=== PATIENT | male | born 1970 | race Caucasian/White ===

== ENCOUNTER 2017-12-10 14:28 | Emergency (ER) | payer OTHER, SELFPAY ==
--- NOTE | 2017-12-10 16:08 | ER ---
Nurse's Notes [facility] Name: Valentin Jordan Age: 46 yrs Sex: Male : 1970 Arrival Date: 12/10/2017 Time: 14:33 Bed 10 Private MD: Diagnosis: Lumbago with sciatica, left side Presentation: 12/10 14:55 Presenting complaint: Patient states: "Im hurting pretty bad from my back down to my lk1 left leg". Transition of care: patient was not received from another setting of care. Onset of symptoms was December 06, 2017. Risk Assessment: Do you want to hurt yourself or someone else? Patient reports no desire to harm self or others. Initial Sepsis Screen: Does the patient meet any 2 criteria? No. Patient's initial sepsis screen is negative. Does the patient have a suspected source of infection? No. Patient's initial sepsis screen is negative. Care prior to arrival: None. 14:55 Method Of Arrival: Ambulatory lk1 14:55 Acuity: RAÚL 4 lk1 Historical: - Allergies: 14:56 No Known Allergies; lk1 - PMHx: 14:56 None; lk1 - PSHx: 14:56 Skin Graft; Carpal Tunnel Repair; lk1 - Immunization history:: Adult Immunizations up to date. - Social history:: Smoking status: Patient uses tobacco products, smokes one-half pack cigarettes per day. Screenin:20 Abuse screen: Denies threats or abuse. Denies injuries from another. Nutritional aj1 screening: No deficits noted. Tuberculosis screening: No symptoms or risk factors identified. Fall Risk None identified. Assessment: 16:20 General: Appears in no apparent distress. uncomfortable, Behavior is calm, cooperative, aj1 appropriate for age. Pain: Complains of pain in left leg and left low back Pain does not radiate. Pain currently is 9 out of 10 on a pain scale. Quality of pain is described as sharp, Pain began 2-3 days ago. Is continuous, Alleviated by nothing. Aggravated by repositioning. Neuro: Level of Consciousness is awake, alert, obeys commands, Oriented to person, place, time, situation, Moves all extremities. Full function Gait is steady, Speech is normal, Facial symmetry appears normal, Intact. Cardiovascular: Patient's skin is warm and dry. Respiratory: Airway is patent Respiratory effort is even, unlabored, Respiratory pattern is regular, symmetrical. GI: No signs and/or symptoms were reported involving the gastrointestinal system. : No signs and/or symptoms were reported regarding the genitourinary system. EENT: No signs and/or symptoms were reported regarding the EENT system. Derm: No signs and/or symptoms reported regarding the dermatologic system. Skin is pink, warm \\T\\ dry. normal. Musculoskeletal: Circulation, motion, and sensation intact. 17:20 Reassessment: Patient appears in no apparent distress at this time. No changes from aj1 previously documented assessment. Patient and/or family updated on plan of care and expected duration. Pain level reassessed. Patient is alert, oriented x 3, equal unlabored respirations, skin warm/dry/pink. Vital Signs: 14:56 BP 143 / 83; Pulse 92; Resp 18; Temp 97.2(TE); Pulse Ox 98% on R/A; Weight 113.4 kg lk1 (R); Height 5 ft. 11 in. (180.34 cm) (R); Pain 9/10; 17:20 BP 152 / 75; Pulse 95; Resp 18; Pulse Ox 99% ; aj1 14:56 Body Mass Index 34.87 (113.40 kg, 180.34 cm) lk1 ED Course: 14:33 Patient arrived in ED. rg4 14:55 Triage completed. lk1 14:58 Arm band placed on right wrist. lk1 15:27 Taye Liu NP is PHCP. pm1 15:27 Pradeep Butt MD is Attending Physician. pm1 15:54 Traci Ren RN is Primary Nurse. aj1 16:20 Patient has correct armband on for positive identification. Call light in reach. aj1 16:20 No provider procedures requiring assistance completed. Patient did not have IV access aj1 during this emergency room visit. Administered Medications: 17:18 Not Given (Patient does not have anyone who can drive him home): [place] 10 mg-325 mg 1 aj1 tabs PO once 17:18 Not Given (patient does not have anyone who can drive him home): Flexeril 10 mg PO once aj1 17:19 Drug: Ibuprofen 800 mg Route: PO; aj1 17:20 Follow up: Response: No adverse reaction aj1 Outcome: 16:07 Discharge ordered by . pm1 17:20 Discharged to home ambulatory. aj1 17:20 Condition: good 17:20 Discharge instructions given to patient, Instructed on discharge instructions, follow up and referral plans. no drinking with medication, no driving heavy equipment, medication usage, Demonstrated understanding of instructions, follow-up care, medications, Prescriptions given X 3. 18:01 Patient left the ED. aj1 Signatures: Traci Ren RN RN aj1 Linda Man RN RN lk1 Taye Liu NP FORESTRY PROFESSOR pm1 Mercedes Bennett rg4
--- NOTE | 2017-12-10 16:08 | EDPHYS ---
Physician Documentation [facility] Name: Valentin Jordan Age: 46 yrs Sex: Male : 1970 Arrival Date: 12/10/2017 Time: 14:33 Bed 10 Private MD: ED Physician Pradeep Butt HPI: 12/10 16:03 This 46 yrs old Male presents to ER via Ambulatory with complaints of Back pm1 Pain. 16:03 The patient presents with pain that is chronic, with no known mechanism of injury. The pm1 symptoms are located in the left low back. Onset: The symptoms/episode began/occurred 3 day(s) ago. The pain radiates to the left leg. Associated signs and symptoms: Pertinent negatives: abdominal pain, dysuria, fever, incontinence, numbness, tingling, urinary retention. Modifying factors: The patient symptoms are alleviated by nothing, the patient symptoms are aggravated by any movement. The patient has experienced similar episodes in the past, chronically. The patient has not recently seen a physician, and does not have an established primary care provider, just moved to area. Patient with onset of chronic back pain 2 years ago. Historical: - Allergies: 14:56 No Known Allergies; lk1 - PMHx: 14:56 None; lk1 - PSHx: 14:56 Skin Graft; Carpal Tunnel Repair; lk1 - Immunization history:: Adult Immunizations up to date. - Social history:: Smoking status: Patient uses tobacco products, smokes one-half pack cigarettes per day. ROS: 16:05 Constitutional: Negative for fever, chills, and weight loss, Eyes: Negative for injury, pm1 pain, redness, and discharge, ENT: Negative for injury, pain, and discharge, Neck: Negative for injury, pain, and swelling, Cardiovascular: Negative for chest pain, palpitations, and edema, Respiratory: Negative for shortness of breath, cough, wheezing, and pleuritic chest pain, Abdomen/GI: Negative for abdominal pain, nausea, vomiting, diarrhea, and constipation. 16:05 : Negative for injury, bleeding, discharge, and swelling, MS/Extremity: Negative for injury and deformity, Skin: Negative for injury, rash, and discoloration, Neuro: Negative for headache, weakness, numbness, tingling, and seizure. 16:05 Back: Positive for of the left low back, Radiation down left leg. Exam: 17:48 Constitutional: This is a well developed, well nourished patient who is awake, alert, pm1 and in no acute distress. Head/Face: Normocephalic, atraumatic. Eyes: Pupils equal round and reactive to light, extra-ocular motions intact. Lids and lashes normal. Conjunctiva and sclera are non-icteric and not injected. Cornea within normal limits. Periorbital areas with no swelling, redness, or edema. Neck: Trachea midline, no thyromegaly or masses palpated, and no cervical lymphadenopathy. Supple, full range of motion without nuchal rigidity, or vertebral point tenderness. No Meningismus. Chest/axilla: Normal chest wall appearance and motion. Nontender with no deformity. No lesions are appreciated. Cardiovascular: Regular rate and rhythm with a normal S1 and S2. No gallops, murmurs, or rubs. Normal PMI, no JVD. No pulse deficits. Respiratory: Lungs have equal breath sounds bilaterally, clear to auscultation and percussion. No rales, rhonchi or wheezes noted. No increased work of breathing, no retractions or nasal flaring. Abdomen/GI: Soft, non-tender, with normal bowel sounds. No distension or tympany. No guarding or rebound. No evidence of tenderness throughout. Back: No spinal tenderness. No costovertebral tenderness. Full range of motion. Skin: Warm, dry with normal turgor. Normal color with no rashes, no lesions, and no evidence of cellulitis. MS/ Extremity: Pulses equal, no cyanosis. Neurovascular intact. Full, normal range of motion. 17:48 Neuro: Orientation: is normal, Mentation: is normal, Motor: moves all fours, strength is normal, Deep tendon reflexes are 2+ (normal) in the right patellar, right Achilles, left patellar and left Achilles. Vital Signs: 14:56 BP 143 / 83; Pulse 92; Resp 18; Temp 97.2(TE); Pulse Ox 98% on R/A; Weight 113.4 kg lk1 (R); Height 5 ft. 11 in. (180.34 cm) (R); Pain 9/10; 17:20 BP 152 / 75; Pulse 95; Resp 18; Pulse Ox 99% ; aj1 14:56 Body Mass Index 34.87 (113.40 kg, 180.34 cm) lk1 MDM: 15:29 Patient medically screened. pm1 16:06 Data reviewed: vital signs. Data interpreted: Pulse oximetry: on room air is 98 %. pm1 Interpretation: normal. Counseling: I had a detailed discussion with the patient and/or guardian regarding: the historical points, exam findings, and any diagnostic results supporting the discharge/admit diagnosis, the need for outpatient follow up, for definitive care, a neurosurgeon, to return to the emergency department if symptoms worsen or persist or if there are any questions or concerns that arise at home. Administered Medications: 17:18 Not Given (Patient does not have anyone who can drive him home): [place] 10 mg-325 mg 1 aj1 tabs PO once 17:18 Not Given (patient does not have anyone who can drive him home): Flexeril 10 mg PO once aj1 17:19 Drug: Ibuprofen 800 mg Route: PO; aj1 17:20 Follow up: Response: No adverse reaction aj1 Disposition: 18:38 Co-signature as Attending Physician, Pradeep Butt MD. rn Disposition: 12/10/17 16:07 Discharged to Home. Impression: Lumbago with sciatica, left side. - Condition is Stable. - Discharge Instructions: Back Pain, Adult, Sciatica. - Prescriptions for Naprosyn 500 mg Oral Tablet - take 1 tablet by ORAL route 2 times per day take with food; 30 tablet. Tylenol- Codeine #3 300-30 mg Oral Tablet - take 2 tablets by ORAL route every 6 hours As needed; 20 tablet. Cyclobenzaprine 10 mg Oral Tablet - take 1 tablet by ORAL route every 8 hours As needed; 30 tablet. - Medication Reconciliation Form, Thank You Letter, Prescription Opioid Use form. - Follow up: Emergency Department; When: As needed; Reason: Worsening of condition. Follow up: Private Physician; When: 2 - 3 days; Reason: Recheck today's complaints, Continuance of care, Re-evaluation by your physician. - Problem is new. - Symptoms have improved. Signatures: Traci Ren RN RN aj1 Pradeep Butt MD MD rn Kluge, Leah, RN RN lk1 Taye Liu, [employer] pm1 Corrections: (The following items were deleted from the chart) 18:01 16:07 12/10/2017 16:07 Discharged to Home. Impression: Lumbago with sciatica, left aj1 side. Condition is Stable. Forms are Medication Reconciliation Form, Thank You Letter, Antibiotic Education, Prescription Opioid Use. Follow up: Emergency Department; When: As needed; Reason: Worsening of condition. Follow up: Private Physician; When: 2 - 3 days; Reason: Recheck today's complaints, Continuance of care, Re-evaluation by your physician. Problem is new. Symptoms have improved. pm1
[2017-12-10] MEDS ORDERED: IBUPROFEN 400 MG TAB ONE (17:07)
== END 2017-12-10 18:01 | disposition home or self-care (01) ==
LOC: ER 14:28
DX: M54.42 Lumbago with sciatica, left side (principal); F17.210 Nicotine dependence, cigarettes, uncomplicated
CPT/HCPCS: 99283

== ENCOUNTER 2018-03-07 10:01 | Emergency (ER) | payer OTHER ==
[2018-03-07] MEDS ORDERED: NA CHLORIDE 0.9% 1,000 ML ONE (10:43)
[2018-03-07 10:44] LABS: Absolute Lymphocytes (CBC) 1.3 K/uL (0.7-4.9); Absolute Monocytes 0.5 K/uL (0.1-1.3); Absolute Neutrophil 3.1 K/uL (1.8-8.0); Basophils % 0.9 % (0-1.3); Hematocrit 42.2 % (39.6-49.0); Lymphocytes % 25.1 % (15.3-44.8); MCH 31.7 pg (27.0-35.0); MPV 9.3 fL (7.6-11.3); Monocytes % 9.8 % (3.3-12.3); RBC Red Blood Cell Count 4.63 M/uL (4.33-5.43)
[2018-03-07 10:46] LABS: Potassium 3.9 mmol/L (3.5-5.1)
--- NOTE | 2018-03-07 11:44 | EDPHYS ---
Physician Documentation [facility] Name: Valentin Jordan Age: 47 yrs Sex: Male : 1970 Arrival Date: 03/07/2018 Time: 10:04 Bed 19 Private MD: ED Physician Meet Bass HPI: 03/07 11:41 This 47 yrs old Male presents to ER via EMS with complaints of Dehydration. jr8 11:41 Patient has been outside [employer] for his job for the past few days. Today while outside jr8 started to feel dizzy and nauseated. Currently feeling better after EMS gave fluids and got him out of the heat. Denies any symptoms at this time . Severity of symptoms: At their worst the symptoms were moderate in the emergency department the symptoms have improved. The patient has not experienced similar symptoms in the past. The patient has not recently seen a physician. Historical: - Allergies: 09:55 No Known Allergies; rb1 - Home Meds: 09:55 muscle relaxer - unknown [Active]; rb1 - PMHx: 09:55 hypoglycemia; rb1 - PSHx: 09:55 Skin Graft; Carpal Tunnel Repair; rb1 - Immunization history:: Adult Immunizations up to date. - Social history:: Smoking status: Patient uses tobacco products, smokes one-half pack cigarettes per day. - Ebola Screening: : Patient negative for fever greater than or equal to 101.5 degrees Fahrenheit, and additional compatible Ebola Virus Disease symptoms. ROS: 11:41 Eyes: Negative for injury, pain, redness, and discharge, ENT: Negative for injury, jr8 pain, and discharge, Neck: Negative for injury, pain, and swelling, Cardiovascular: Negative for chest pain, palpitations, and edema, Respiratory: Negative for shortness of breath, cough, wheezing, and pleuritic chest pain, Abdomen/GI: Negative for abdominal pain, vomiting, diarrhea, and constipation. Positive for nausea Back: Negative for injury and pain, MS/Extremity: Negative for injury and deformity, Skin: Negative for injury, rash, and discoloration. 11:41 Neuro: Positive for dizziness, Negative for altered mental status, gait disturbance, headache, hearing loss, loss of consciousness, numbness, seizure activity, speech changes, syncope, near syncope, tingling, tinnitus, tremor, visual changes, weakness. Exam: 11:41 Eyes: Pupils equal round and reactive to light, extra-ocular motions intact. Lids and jr8 lashes normal. Conjunctiva and sclera are non-icteric and not injected. Cornea within normal limits. Periorbital areas with no swelling, redness, or edema. ENT: Nares patent. No nasal discharge, no septal abnormalities noted. Tympanic membranes are normal and external auditory canals are clear. Oropharynx with no redness, swelling, or masses, exudates, or evidence of obstruction, uvula midline. Mucous membranes moist. Neck: Trachea midline, no thyromegaly or masses palpated, and no cervical lymphadenopathy. Supple, full range of motion without nuchal rigidity, or vertebral point tenderness. No Meningismus. Respiratory: Lungs have equal breath sounds bilaterally, clear to auscultation and percussion. No rales, rhonchi or wheezes noted. No increased work of breathing, no retractions or nasal flaring. Abdomen/GI: Soft, non-tender, with normal bowel sounds. No distension or tympany. No guarding or rebound. No evidence of tenderness throughout. Back: No spinal tenderness. No costovertebral tenderness. Full range of motion. Skin: Warm, dry with normal turgor. Normal color with no rashes, no lesions, and no evidence of cellulitis. MS/ Extremity: Pulses equal, no cyanosis. Neurovascular intact. Full, normal range of motion. Neuro: Awake and alert, GCS 15, oriented to person, place, time, and situation. Cranial nerves II-XII grossly intact. Motor strength 5/5 in all extremities. Sensory grossly intact. Cerebellar exam normal. Normal gait. 11:41 Cardiovascular: Rate: tachycardic, Rhythm: regular, Pulses: Pulses are 2+ in . Heart sounds: normal, Edema: is not appreciated. Vital Signs: 09:55 BP 126 / 85; Pulse 111; Resp 29; Temp 98.3(O); Pulse Ox 96% on R/A; Weight 122.92 kg; rb1 Height 5 ft. 11 in. (180.34 cm) (R); Pain 5/10; 10:15 BP 118 / 94; Pulse 111; Resp 15; Pulse Ox 97% ; rb1 11:11 BP 121 / 88; Pulse 107; Resp 17; Pulse Ox 100% on R/A; rb1 12:00 BP 123 / 87; Pulse 99; Resp 17; Pulse Ox 100% on R/A; rb1 09:55 Body Mass Index 37.80 (122.92 kg, 180.34 cm) rb1 MDM: 10:05 Patient medically screened. jr8 11:41 Data reviewed: vital signs, nurses notes, lab test result(s), and as a result, I will jr8 discharge patient. Data interpreted: Pulse oximetry: on room air is 97 %. Interpretation: normal. Counseling: I had a detailed discussion with the patient and/or guardian regarding: the historical points, exam findings, and any diagnostic results supporting the discharge/admit diagnosis, lab results, the need for outpatient follow up, a family practitioner, to return to the emergency department if symptoms worsen or persist or if there are any questions or concerns that arise at home. Response to treatment: the patient's symptoms have markedly improved after treatment, patient is well hydrated. 03/07 10:05 Order name: CBC with Diff; Complete Time: 10:46 [facility] 03/07 10:05 Order name: Basic Metabolic Panel; Complete Time: 10:46 [facility] 03/07 10:05 Order name: CPK; Complete Time: 10:46 [facility] 03/07 10:05 Order name: IV; Complete Time: 10:15 [facility] 03/07 10:58 Order name: Urine Dipstick--Ancillary (enter results) bd 03/07 10:06 Order name: Urine Dipstick-Ancillary (obtain specimen); Complete Time: 11:11 jr8 Administered Medications: 11:12 Drug: NS 0.9% 1000 ml Route: IV; Rate: 1000 ml; Site: left hand; rb1 12:00 Follow up: Response: No adverse reaction; IV Status: Completed infusion rb1 Point of Care Testing: Blood Glucose: 10:12 Blood Glucose: 94 mg/dL; rb1 Ranges: Critical Glucose Levels:Adult <50 mg/dl or >400 mg/dl <40 mg/dl or >180 mg/dl Disposition: 18:37 Co-signature as Attending Physician, Meet Bass MD. Disposition: 03/07/18 11:44 Discharged to Home. Impression: Heat exhaustion, unspecified, Dehydration. - Condition is Stable. - Discharge Instructions: Dehydration, Adult, Heat Exhaustion Information. - Medication Reconciliation Form, Thank You Letter, Antibiotic Education, Prescription Opioid Use, Work release form form. - Follow up: Private Physician; When: 2 - 3 days; Reason: Recheck today's complaints, Continuance of care, Re-evaluation by your physician. - Problem is new. - Symptoms have improved. Signatures: Dispatcher [employer] EDMS Pedro Gaspar PA PA jr8 Mila Carpio, RN RN rb1 Meet Bass MD MD gs Corrections: (The following items were deleted from the chart) 12:05 11:44 03/07/2018 11:44 Discharged to Home. Impression: Heat exhaustion, unspecified; rb1 Dehydration. Condition is Stable. Forms are Medication Reconciliation Form, Thank You Letter, Antibiotic Education, Prescription Opioid Use. Follow up: Private Physician; When: 2 - 3 days; Reason: Recheck today's complaints, Continuance of care, Re-evaluation by your physician. Problem is new. Symptoms have improved. jr8
--- NOTE | 2018-03-07 11:44 | ER ---
Nurse's Notes [facility] Name: Valentin Jordan Age: 47 yrs Sex: Male : 1970 Arrival Date: 03/07/2018 Time: 10:04 Bed 19 Private MD: Diagnosis: Heat exhaustion, unspecified;Dehydration Presentation: 03/07 09:55 Presenting complaint: EMS states: pt. is a 47 yr. old that was working outside when he rb1 became lightheaded, dizzy, and diaphoretic. Pt. did not eat this morning. Has a history of hypoglycemia, his was BS 145. Has a 20 g to left AC with NS 1 liter infusing, received 400 mg so far. V/S bp 119/81, p 118, O2 95% RA. Sinus tach on the monitor. NKA. Transition of care: patient was not received from another setting of care. Onset of symptoms was March 07, 2018 at 09:45. Risk Assessment: Do you want to hurt yourself or someone else? Patient reports no desire to harm self or others. Initial Sepsis Screen: Does the patient meet any 2 criteria? No. Patient's initial sepsis screen is negative. Does the patient have a suspected source of infection? No. Patient's initial sepsis screen is negative. Care prior to arrival: Medication(s) given: Normal saline infusion, 400 ml. :55 Method Of Arrival: EMS: [facility] rb1 09:55 Acuity: RAÚL 3 rb1 Triage Assessment: 09:55 General: Appears in no apparent distress. comfortable, Behavior is calm, cooperative. rb1 Pain: Complains of pain in low back Pain currently is 4 out of 10 on a pain scale. Neuro: Level of Consciousness is awake, alert, obeys commands, Oriented to person, place, time, situation, Reports dizziness, lightheaded.. Cardiovascular: Capillary refill < 3 seconds is brisk in bilateral fingers. Respiratory: Airway is patent Respiratory effort is even, unlabored, Respiratory pattern is regular, symmetrical. GI: No signs and/or symptoms were reported involving the gastrointestinal system. : No signs and/or symptoms were reported regarding the genitourinary system. Derm: Skin is diaphoretic, Skin is flushed, Skin temperature is hot. Musculoskeletal: Range of motion: intact in all extremities. Historical: - Allergies: :55 No Known Allergies; rb1 - Home Meds: :55 muscle relaxer - unknown [Active]; rb1 - PMHx: : hypoglycemia; rb1 - PSHx: :55 Skin Graft; Carpal Tunnel Repair; rb1 - Immunization history:: Adult Immunizations up to date. - Social history:: Smoking status: Patient uses tobacco products, smokes one-half pack cigarettes per day. - Ebola Screening: : Patient negative for fever greater than or equal to 101.5 degrees Fahrenheit, and additional compatible Ebola Virus Disease symptoms. Screenin: Abuse screen: Denies threats or abuse. Nutritional screening: No deficits noted. rb1 Tuberculosis screening: No symptoms or risk factors identified. Fall Risk None identified. Assessment: : General: See triage assessment. rb1 :55 Reassessment: Patient appears in no apparent distress at this time. Patient and/or rb1 family updated on plan of care and expected duration. Pain level reassessed. Patient is alert, oriented x 3, equal unlabored respirations, skin warm/dry/pink. Family and employer is at bedside. Patient states feeling better. Patient states symptoms have improved. 11:54 Reassessment: Patient appears in no apparent distress at this time. No changes from rb1 previously documented assessment. Vital Signs: :55 BP 126 / 85; Pulse 111; Resp 29; Temp 98.3(O); Pulse Ox 96% on R/A; Weight 122.92 kg; rb1 Height 5 ft. 11 in. (180.34 cm) (R); Pain 5/10; 10:15 BP 118 / 94; Pulse 111; Resp 15; Pulse Ox 97% ; rb1 11:11 BP 121 / 88; Pulse 107; Resp 17; Pulse Ox 100% on R/A; rb1 12:00 BP 123 / 87; Pulse 99; Resp 17; Pulse Ox 100% on R/A; rb1 09:55 Body Mass Index 37.80 (122.92 kg, 180.34 cm) rb1 ED Course: : Maintain EMS IV. Dressing intact. Good blood return noted. Site clean \T\ dry. Gauge \T\ rb 1 site: 20 g Left AC. 09:55 Arm band placed on right wrist. rb1 :55 Patient has correct armband on for positive identification. Bed in low position. Call rb1 light in reach. Side rails up X2. Pulse ox on. NIBP on. 10:04 Patient arrived in ED. rb1 10:05 Pedro Gaspar PA is PHCP. jr8 10:05 Meet Bass MD is Attending Physician. jr8 10:10 Initial lab(s) drawn, by me, sent to lab. 3 10:16 Triage completed. rb1 10:25 Mila Carpio, RN is Primary Nurse. rb1 12:05 No provider procedures requiring assistance completed. IV discontinued, intact, rb1 bleeding controlled, No redness/swelling at site. Pressure dressing applied. Administered Medications: 11:12 Drug: NS 0.9% 1000 ml Route: IV; Rate: 1000 ml; Site: left hand; rb1 12:00 Follow up: Response: No adverse reaction; IV Status: Completed infusion rb1 Point of Care Testing: Blood Glucose: 10:12 Blood Glucose: 94 mg/dL; rb1 Ranges: Outcome: 11:44 Discharge ordered by . jr8 12:05 Patient left the ED. rb1 12:05 Discharged to home ambulatory, with family. rb1 12:05 Condition: stable 12:05 Discharge instructions given to patient, Instructed on discharge instructions, follow up and referral plans. Demonstrated understanding of instructions, follow-up care, Prescriptions given X none Signatures: Pedro Gaspar PA PA jr8 Mila Carpio, RN RN [facility] Tejal Rai [facility] Corrections: (The following items were deleted from the chart) 13:40 11:35 Reassessment: pt. going to CT. rb1 rb1
[2018-03-07 12:38] LABS: Urine Blood NEGATIVE (NEG); Urine Glucose NEGATIVE (NEG); Urine Protein NEGATIVE (NEG); Urine Specific Gravity 1.015 (1.005-1.030)
== END 2018-03-07 12:05 | disposition home or self-care (01) ==
LOC: ER 10:01
DX: E86.0 Dehydration (principal); T67.5XXA Heat exhaustion, unspecified, initial encounter; X58.XXXA Exposure to other specified factors, initial encounter; Y93.89 Activity, other specified; Y92.89 Other specified places as the place of occurrence of the external cause; Y99.8 Other external cause status; F17.210 Nicotine dependence, cigarettes, uncomplicated
CPT/HCPCS: 36415; 80048; 81003; 82550; 82962; 85025; 96360; 99284; J7030

== ENCOUNTER 2018-03-14 19:47 | Emergency (ER) | payer OTHER ==
[2018-03-14] MEDS ORDERED: predniSONE 20 MG TAB ONE (20:17)
--- NOTE | 2018-03-14 20:17 | EDPHYS ---
Physician Documentation [facility] Name: Valentin Jordan Age: 47 yrs Sex: Male : 1970 Arrival Date: 03/14/2018 Time: 19:47 Bed 23 Private MD: ED Physician Meet Bass HPI: 03/14 20:12 This 47 yrs old Male presents to ER via Ambulatory with complaints of Back gs Pain. 20:12 The patient presents with pain that is acute, that is chronic. The symptoms are located gs in the right low back. Onset: The symptoms/episode began/occurred 2 day(s) ago. The pain does not radiate. Associated signs and symptoms: Pertinent negatives: dysuria, hematuria, incontinence, urinary retention. Modifying factors: the patient symptoms are aggravated by any movement, bending. Severity of symptoms: At their worst the symptoms were moderate, in the emergency department the symptoms are unchanged. The patient has experienced similar episodes in the past, multiple times. The patient has been recently seen by a physician: the patient's primary care provider, scheduled for pain management next week. Historical: - Allergies: 20:00 No Known Allergies; tl2 - Home Meds: 20:00 unknown BP med [Active]; Flexeril Oral [Active]; tl2 - PMHx: 20:00 HYPOGLYCEMIA; Hypertension; tl2 - PSHx: 20:00 Carpal Tunnel Repair; tl2 - Immunization history:: Adult Immunizations up to date. - Social history:: Smoking status: Patient uses tobacco products, smokes one pack cigarettes per day. - Ebola Screening: : No symptoms or risks identified at this time. ROS: 20:12 All other systems are negative. gs Exam: 20:12 Head/Face: Normocephalic, atraumatic. Eyes: Pupils equal round and reactive to light, gs extra-ocular motions intact. Lids and lashes normal. Conjunctiva and sclera are non-icteric and not injected. Cornea within normal limits. Periorbital areas with no swelling, redness, or edema. ENT: Nares patent. No nasal discharge, no septal abnormalities noted. Tympanic membranes are normal and external auditory canals are clear. Oropharynx with no redness, swelling, or masses, exudates, or evidence of obstruction, uvula midline. Mucous membranes moist. Neck: Trachea midline, no thyromegaly or masses palpated, and no cervical lymphadenopathy. Supple, full range of motion without nuchal rigidity, or vertebral point tenderness. No Meningismus. Chest/axilla: Normal chest wall appearance and motion. Nontender with no deformity. No lesions are appreciated. Cardiovascular: Regular rate and rhythm with a normal S1 and S2. No gallops, murmurs, or rubs. Normal PMI, no JVD. No pulse deficits. Respiratory: Lungs have equal breath sounds bilaterally, clear to auscultation and percussion. No rales, rhonchi or wheezes noted. No increased work of breathing, no retractions or nasal flaring. Abdomen/GI: Soft, non-tender, with normal bowel sounds. No distension or tympany. No guarding or rebound. No evidence of tenderness throughout. Skin: Warm, dry with normal turgor. Normal color with no rashes, no lesions, and no evidence of cellulitis. MS/ Extremity: Pulses equal, no cyanosis. Neurovascular intact. Full, normal range of motion. Neuro: Awake and alert, GCS 15, oriented to person, place, time, and situation. Cranial nerves II-XII grossly intact. Motor strength 5/5 in all extremities. Sensory grossly intact. Cerebellar exam normal. Normal gait. 20:12 Constitutional: The patient appears alert, awake. 20:12 Back: pain, that is moderate, of the right low back. Vital Signs: 20:00 BP 122 / 80; Pulse 93; Resp 18; Temp 98.0(O); Pulse Ox 95% on R/A; Weight 117.93 kg; tl2 Height 5 ft. 11 in. (180.34 cm); Pain 10/10; 20:00 Body Mass Index 36.26 (117.93 kg, 180.34 cm) tl2 MDM: 20:10 Patient medically screened. gs 20:12 Differential diagnosis: chronic back pain, Ligament Injury ruptured disc. Data gs reviewed: vital signs, nurses notes. Response to treatment: There is no appreciated change of the patient's symptoms at this time, and as a result, I will discharge patient. 03/14 20:15 Order name: Urine Dipstick--Ancillary (enter results) rg2 Administered Medications: 20:16 Drug: predniSONE 40 mg Route: PO; tl3 20:34 Follow up: Response: No adverse reaction tl3 Disposition: 03/14/18 20:16 Discharged to Home. Impression: Other intervertebral disc degeneration, thoracolumbar region. - Condition is Stable. - Discharge Instructions: Degenerative Disk Disease, Back Exercises, [id number]. - Prescriptions for Naprosyn 500 mg Oral Tablet - take 1 tablet by ORAL route 2 times per day take with food; 30 tablet. Pepcid 20 mg Oral Tablet - take 1 tablet by ORAL route every 12 hours for 10 days; 20 tablet. Tylenol- Codeine #4 300-60 mg Oral Tablet - take 1 tablet by ORAL route every 6 hours As needed; 6 tablet. Prednisone 20 mg Oral Tablet - take 1 tablet by ORAL route once daily for 5 days; 5 tablet. - Medication Reconciliation Form, Thank You Letter, Antibiotic Education, Prescription Opioid Use form. - Follow up: Private Physician; When: 2 - 3 days; Reason: Re-evaluation by your physician. Signatures: Dispatcher [employer] EDMS Chantell Santiago RN RN tl2 Meet Bass MD MD Milli Aguilera RN RN tl3 Corrections: (The following items were deleted from the chart) 20:33 20:16 03/14/2018 20:16 Discharged to Home. Impression: Other intervertebral disc tl3 degeneration, thoracolumbar region. Condition is Stable. Forms are Medication Reconciliation Form, Thank You Letter, Antibiotic Education, Prescription Opioid Use. Follow up: Private Physician; When: 2 - 3 days; Reason: Re-evaluation by your physician.
--- NOTE | 2018-03-14 20:17 | ER ---
Nurse's Notes [facility] Name: Valentin Jordan Age: 47 yrs Sex: Male : 1970 Arrival Date: 03/14/2018 Time: 19:47 Bed 23 Private MD: Diagnosis: Other intervertebral disc degeneration, thoracolumbar region Presentation: 03/14 19:58 Presenting complaint: Patient states: lower back pain x 2 days has gotten worse. 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 Transition of care: patient was not received from another setting of care. Onset of symptoms was March 12, 2018. Risk Assessment: Do you want to hurt yourself or someone else? Patient reports no desire to harm self or others. Initial Sepsis Screen: Does the patient meet any 2 criteria? No. Patient's initial sepsis screen is negative. Does the patient have a suspected source of infection? No. Patient's initial sepsis screen is negative. Care prior to arrival: None. 19:58 Method Of Arrival: Ambulatory tl2 19:58 Acuity: RAÚL 4 tl2 Triage Assessment: 20:00 General: Appears in no apparent distress. uncomfortable, Behavior is calm, cooperative, tl2 appropriate for age. Pain: Complains of pain in lumbar area, left low back and right low back. Musculoskeletal: Circulation, motion, and sensation intact. Range of motion: intact in all extremities. Historical: - Allergies: 20:00 No Known Allergies; tl2 - Home Meds: 20:00 unknown BP med [Active]; Flexeril Oral [Active]; tl2 - PMHx: 20:00 HYPOGLYCEMIA; Hypertension; tl2 - PSHx: 20:00 Carpal Tunnel Repair; tl2 - Immunization history:: Adult Immunizations up to date. - Social history:: Smoking status: Patient uses tobacco products, smokes one pack cigarettes per day. - Ebola Screening: : No symptoms or risks identified at this time. Screenin:02 Abuse screen: Denies threats or abuse. Nutritional screening: No deficits noted. tl2 Tuberculosis screening: No symptoms or risk factors identified. Fall Risk None identified. Assessment: 20:00 General: Appears uncomfortable, well groomed, well developed, well nourished, Behavior tl3 is calm, cooperative, appropriate for age. Pain: Complains of pain in right low back and left low back. Neuro: Level of Consciousness is awake, alert, obeys commands, Oriented to person, place, time, situation, Appropriate for age. Cardiovascular: Patient's skin is warm and dry. Respiratory: Airway is patent Respiratory effort is even, unlabored, Respiratory pattern is regular, symmetrical. GI: No signs and/or symptoms were reported involving the gastrointestinal system. : No signs and/or symptoms were reported regarding the genitourinary system. EENT: No signs and/or symptoms were reported regarding the EENT system. Derm: No signs and/or symptoms reported regarding the dermatologic system. 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 Vital Signs: 20:00 BP 122 / 80; Pulse 93; Resp 18; Temp 98.0(O); Pulse Ox 95% on R/A; Weight 117.93 kg; tl2 Height 5 ft. 11 in. (180.34 cm); Pain 10/10; 20:00 Body Mass Index 36.26 (117.93 kg, 180.34 cm) tl2 ED Course: 19:47 Patient arrived in ED. ds1 19:54 Meet Bass MD is Attending Physician. gs 19:59 Triage completed. tl2 20:00 Arm band placed on right wrist. tl2 20:02 Patient has correct armband on for positive identification. Bed in low position. Call tl2 light in reach. Side rails up X 1. Adult w/ patient. 20:11 Milli Aguilera, RN is Primary Nurse. tl3 20:32 No provider procedures requiring assistance completed. Patient did not have IV access tl3 during this emergency room visit. Administered Medications: 20:16 Drug: predniSONE 40 mg Route: PO; tl3 20:34 Follow up: Response: No adverse reaction tl3 Outcome: 20:16 Discharge ordered by . gs 20:32 Discharged to home ambulatory. tl3 20:32 Condition: stable 20:32 Discharge instructions given to patient, Instructed on discharge instructions, follow up and referral plans. Demonstrated understanding of instructions, follow-up care, medications, Prescriptions given X 4. 20:33 Patient left the ED. tl3 Signatures: Ana Maria Smith ds1 Chantell Santiago RN RN tl2 Meet Bass MD MD Milli Aguilera, CHUCK RN tl3
[2018-03-14 20:28] LABS: Urine Blood TRACE (NEG); Urine Glucose NEGATIVE (NEG); Urine Protein NEGATIVE (NEG)
== END 2018-03-14 20:33 | disposition home or self-care (01) ==
LOC: ER 19:47
DX: M51.35 Other intervertebral disc degeneration, thoracolumbar region (principal); I10 Essential (primary) hypertension; F17.210 Nicotine dependence, cigarettes, uncomplicated; E16.2 Hypoglycemia, unspecified
CPT/HCPCS: 81003; 99283; J7512

== ENCOUNTER 2018-03-30 19:04 | Emergency (ER) | payer OTHER ==
[2018-03-30] MEDS ORDERED: IBUPROFEN 400 MG TAB ONE (19:55)
--- NOTE | 2018-03-30 20:25 | RAD REPORT ---
EXAM DESCRIPTION: RAD - Knee Left 3 View - 03/30/2018 8:20 pm CLINICAL HISTORY: fall onto knee 1 week ago;Pain COMPARISON: None FINDINGS: No acute fracture or dislocation is evident. A prominent suprapatellar joint effusion is s een with edematous skin and subcutaneous tissues identified. Followup nonemergent MR imaging may be o f value to assess for internal derangement.
--- NOTE | 2018-03-30 21:03 | ER ---
Nurse's Notes [facility] Name: Valentin Jordan Age: 47 yrs Sex: Male : 1970 Arrival Date: 03/30/2018 Time: 19:05 Bed 26 Private MD: Diagnosis: Pain in left knee Presentation: 03/30 19:29 Presenting complaint: Patient states: He fell out of his truck last Sunday and landed aj1 on his left knee. He thought the pain would get better, but it hasn't and the swelling has not gone down. Limited ROM in left knee due to pain. Transition of care: patient was not received from another setting of care. Onset of symptoms was March 2018. Risk Assessment: Do you want to hurt yourself or someone else? Patient reports no desire to harm self or others. Initial Sepsis Screen: Does the patient meet any 2 criteria? HR > 90 bpm. No. Patient's initial sepsis screen is negative. Does the patient have a suspected source of infection? Yes: Other: swelling to knee. Care prior to arrival: None. 19:29 Method Of Arrival: Ambulatory aj 19:29 Acuity: RAÚL 4 aj1 Triage Assessment: 19:31 General: Appears in no apparent distress. comfortable, Behavior is calm, cooperative, aj1 appropriate for age. Pain: Complains of pain in left knee Pain currently is 9 out of 10 on a pain scale. Neuro: Level of Consciousness is awake, alert, obeys commands. Cardiovascular: Patient's skin is warm and dry. Respiratory: Airway is patent Respiratory effort is even, unlabored, Respiratory pattern is regular, symmetrical. Musculoskeletal: Range of motion: limited in left knee. Injury Description: Patient states that he fell out of his truck. Historical: - Allergies: 19:31 No Known Allergies; aj1 - Home Meds: 19:31 Flexeril Oral [Active]; unknown BP med [Active]; aj1 - PMHx: 19:31 Hypertension; HYPOGLYCEMIA; aj1 - Immunization history:: Flu vaccine is up to date. - Social history:: Smoking status: Patient uses tobacco products, smokes one-half pack cigarettes per day. - Ebola Screening: : Patient denies travel to an Ebola-affected area in the 21 days before illness onset. Screenin:09 Abuse screen: Denies threats or abuse. Denies injuries from another. Nutritional rv screening: No deficits noted. Tuberculosis screening: No symptoms or risk factors identified. Fall Risk None identified. Assessment: 19:41 General: Appears in no apparent distress. Behavior is. Pain: Complains of pain in left la1 knee. Neuro: Level of Consciousness is awake, alert, obeys commands, Oriented to person, place, time, situation. Respiratory: Airway is patent Respiratory effort is even, unlabored, Respiratory pattern is regular, symmetrical. GI: No signs and/or symptoms were reported involving the gastrointestinal system. : No signs and/or symptoms were reported regarding the genitourinary system. Musculoskeletal: Circulation, motion, and sensation intact. Capillary refill < 3 seconds, Reports pain in left knee. Vital Signs: 19:31 BP 131 / 80; Pulse 100; Resp 20; Temp 97.0; Pulse Ox 97% on R/A; Weight 113.4 kg (R); aj1 Height 5 ft. 11 in. (180.34 cm); Pain 9/10; 19:31 Body Mass Index 34.87 (113.40 kg, 180.34 cm) aj1 ED Course: 19:05 Patient arrived in ED. es 19:31 Triage completed. aj1 19:31 Arm band placed on Patient placed in an exam room. aj1 19:41 Herberth Greenberg, CHUCK is Primary Nurse. la1 19:42 Jordy Hodges PA is PHCP. cp 19:42 Vamsi Clancy MD is Attending Physician. cp 20:18 XRAY Knee LEFT 3 view In Process Unspecified. EDMS 21:00 Edd Madrid MD is Referral Physician. cp 21:09 Patient has correct armband on for positive identification. Bed in low position. Call rv light in reach. Side rails up X 1. Pulse ox on. NIBP on. 21:09 No provider procedures requiring assistance completed. Patient did not have IV access rv during this emergency room visit. Administered Medications: 19:56 Drug: Ibuprofen 800 mg Route: PO; rv 21:09 Follow up: Response: No adverse reaction rv Outcome: 21:02 Discharge ordered by . cp 21:09 Discharged to home with crutches. rv 21:09 Condition: good 21:09 Discharge instructions given to patient, Instructed on discharge instructions, follow up and referral plans. medication usage, crutch walking, Demonstrated understanding of instructions, follow-up care, medications, crutch walking, Prescriptions given X 1. 21:10 Patient left the ED. rv Signatures: Dispatcher [employer] Traci Figueroa RN RN aj1 Latha Loredo Lee RN RN la1 Jordy Hodges PA PA cp Vicente, Ronaldo, RN RN rv
--- NOTE | 2018-03-30 21:03 | EDPHYS ---
Physician Documentation [facility] Name: Valentin Jordan Age: 47 yrs Sex: Male : 1970 Arrival Date: 03/30/2018 Time: 19:05 Bed 26 Private MD: ED Physician Vamsi Clancy HPI: 03/30 19:47 This 47 yrs old Male presents to ER via Ambulatory with complaints of Knee cp Injury. 19:47 The patient presents with pain, that is acute, swelling, tenderness. The complaints cp affect the left knee. Context: The problem was sustained at work, resulted from the patient falling, the patient can fully bear weight, the patient is able to ambulate, with mild difficulty. Onset: The symptoms/episode began/occurred 1 week(s) ago. Associated signs and symptoms: Pertinent positives: swelling, Pertinent negatives calf tenderness, fever, warmth, weakness. Treatment prior to arrival includes: no previous treatment. Historical: - Allergies: 19:31 No Known Allergies; aj1 - Home Meds: 19:31 Flexeril Oral [Active]; unknown BP med [Active]; aj1 - PMHx: 19:31 Hypertension; HYPOGLYCEMIA; aj1 - Immunization history:: Flu vaccine is up to date. - Social history:: Smoking status: Patient uses tobacco products, smokes one-half pack cigarettes per day. - Ebola Screening: : Patient denies travel to an Ebola-affected area in the 21 days before illness onset. ROS: 20:00 Constitutional: Negative for body aches, chills, fever, poor PO intake. cp 20:00 Eyes: Negative for injury, pain, redness, and discharge. cp 20:00 ENT: Negative for ear pain, sore throat, difficulty swallowing, difficulty handling secretions. 20:00 Cardiovascular: Negative for chest pain, edema, palpitations. 20:00 Respiratory: Negative for cough, shortness of breath, wheezing. 20:00 Abdomen/GI: Negative for abdominal pain, nausea, vomiting, and diarrhea. 20:00 MS/extremity: Positive for pain, swelling, tenderness, of the left knee, Negative for decreased range of motion. 20:00 Skin: Negative for cellulitis, rash. 20:00 Neuro: Negative for numbness, weakness. 20:00 All other systems are negative. Exam: 20:05 Constitutional: The patient appears in no acute distress, alert, awake, non-toxic, well cp developed, well nourished. 20:05 Head/Face: Normocephalic, atraumatic. cp 20:05 Eyes: Periorbital structures: appear normal, Sclera: no appreciated abnormality, Lids and lashes: appear normal, bilaterally. 20:05 ENT: External ear(s): are unremarkable, Nose: is normal, Mouth: is normal, Posterior pharynx: is normal, airway is patent. 20:05 Chest/axilla: Inspection: normal. 20:05 Cardiovascular: Rate: tachycardic. 20:05 Respiratory: the patient does not display signs of respiratory distress, Respirations: normal. 20:05 Back: pain, is absent, ROM is normal. 20:05 Musculoskeletal/extremity: ROM: limited passive range of motion due to pain, in the left knee, Joints: All joints are normal except the left knee displays painful range of motion, swelling, tenderness, Weight bearing: able to fully bear weight. 20:05 Skin: cellulitis, is not appreciated, no rash present. Vital Signs: 19:31 BP 131 / 80; Pulse 100; Resp 20; Temp 97.0; Pulse Ox 97% on R/A; Weight 113.4 kg (R); aj1 Height 5 ft. 11 in. (180.34 cm); Pain 9/10; 19:31 Body Mass Index 34.87 (113.40 kg, 180.34 cm) aj1 MDM: 19:43 Patient medically screened. 03/30 19:46 Order name: XRAY Knee LEFT 3 view; Complete Time: 21:04 03/30 21:04 Interpretation: Report reviewed. 03/30 20:34 Order name: Crutches; Complete Time: 20:41 03/30 20:34 Order name: Knee Immobilizer; Complete Time: 20:41 cp Administered Medications: 19:56 Drug: Ibuprofen 800 mg Route: PO; rv 21:09 Follow up: Response: No adverse reaction rv Disposition: 03/30/18 21:02 Discharged to Home. Impression: Pain in left knee. - Condition is Stable. - Discharge Instructions: Elastic Bandage and RICE, Knee Immobilizer, Knee Pain, Form - Excuse from Work, School, or Physical Activity. - Prescriptions for Naprosyn 500 mg Oral Tablet - take 1 tablet by ORAL route 2 times per day take with food; 20 tablet. - Medication Reconciliation Form, Thank You Letter, Antibiotic Education, Prescription Opioid Use, Work release form form. - Follow up: Edd Madrid MD; When: 2 - 3 days; Reason: left knee pain. - Problem is new. - Symptoms have improved. Addendum: 04/06/2018 12:02 Co-signature as Attending Physician, Vamsi Clancy MD Available for consultation at p s1 all times. . Signatures: Dispatcher [employer] EDMS Traci Ren RN RN aj1 Jordy Hodges PA PA cp Vamsi Clancy MD MD ps1 Awais Gutierrez RN RN rv Corrections: (The following items were deleted from the chart) 03/30 21:10 21:02 03/30/2018 21:02 Discharged to Home. Impression: Pain in left knee. Condition is rv Stable. Forms are Medication Reconciliation Form, Thank You Letter, Antibiotic Education, Prescription Opioid Use. Follow up: Dr. Edd Madrid; When: 2 - 3 days; Reason: left knee pain. Problem is new. Symptoms have improved. cp
== END 2018-03-30 21:10 | disposition home or self-care (01) ==
LOC: ER 19:04
DX: M25.562 Pain in left knee (principal); F17.210 Nicotine dependence, cigarettes, uncomplicated; I10 Essential (primary) hypertension; W17.89XA Other fall from one level to another, initial encounter; V58.4XXA Person boarding or alighting a pick-up truck or van injured in noncollision transport accident, initial encounter
CPT/HCPCS: 99284

== ENCOUNTER 2018-10-20 08:10 | Emergency (ER) | payer OTHER, SELFPAY ==
--- NOTE | 2018-10-20 08:49 | EDPHYS ---
Physician Documentation [facility] Name: Valentin Jordan Age: 47 yrs Sex: Male : 1970 Arrival Date: 10/20/2018 Time: 08:13 Bed 7 Private MD: ED Physician Pradeep Butt HPI: 10/20 08:37 This 47 yrs old Male presents to ER via Ambulatory with complaints of Flu snw Symptoms. 08:37 The patient or guardian reports cough, flu symptoms, arthralgias, low-grade fever, snw myalgias, no appetite. Onset: The symptoms/episode began/occurred suddenly, yesterday. Modifying factors: The symptoms are alleviated by nothing. the symptoms are aggravated by cough. Associated signs and symptoms: Pertinent positives: fever, sore throat. Severity of symptoms: At their worst the symptoms were moderate. It is unknown whether or not the patient has had similar symptoms in the past. The patient has not recently seen a physician. Historical: - Allergies: 08:26 No Known Allergies; iw - Home Meds: 08:26 None [Active]; iw - PMHx: 08:26 None; iw - PSHx: 08:26 None; iw - Immunization history:: Adult Immunizations not up to date. - Social history:: Smoking status: Patient uses tobacco products, smokes one pack cigarettes per day. - Ebola Screening: : Patient negative for fever greater than or equal to 101.5 degrees Fahrenheit, and additional compatible Ebola Virus Disease symptoms Patient denies exposure to infectious person Patient denies travel to an Ebola-affected area in the 21 days before illness onset No symptoms or risks identified at this time. ROS: 08:34 Constitutional: Positive for fever, chills, and negative for weight loss, Eyes: snw Negative for injury, pain, redness, and discharge. 08:34 Neck: Negative for injury, pain, and swelling, Cardiovascular: Negative for chest pain, palpitations, and edema. 08:34 Back: Negative for injury and pain, : Negative for injury, bleeding, discharge, and swelling, MS/Extremity: Negative for injury and deformity, sore all over Skin: Negative for injury, rash, and discoloration, Neuro: Negative for headache, weakness, numbness, tingling, and seizure. 08:34 ENT: Positive for sinus pain, sore throat. 08:34 Respiratory: Positive for cough. 08:34 Abdomen/GI: Positive for abdominal pain, vomiting, "chronic abd pain". Exam: 08:34 Head/Face: Normocephalic, atraumatic. Eyes: Pupils equal round and reactive to light, snw extra-ocular motions intact. Lids and lashes normal. Conjunctiva and sclera are non-icteric and not injected. Cornea within normal limits. Periorbital areas with no swelling, redness, or edema. 08:34 Neck: Trachea midline, no thyromegaly or masses palpated, and no cervical lymphadenopathy. Supple, full range of motion without nuchal rigidity, or vertebral point tenderness. No Meningismus. Chest/axilla: Normal chest wall appearance and motion. Nontender with no deformity. No lesions are appreciated. Cardiovascular: Regular rate and rhythm with a normal S1 and S2. No gallops, murmurs, or rubs. Normal PMI, no JVD. No pulse deficits. Respiratory: Lungs have equal breath sounds bilaterally, clear to auscultation and percussion. No rales, rhonchi or wheezes noted. No increased work of breathing, no retractions or nasal flaring. harsh cough 08:34 Back: No spinal tenderness. No costovertebral tenderness. Full range of motion. Skin: Warm, dry with normal turgor. Normal color with no rashes, no lesions, and no evidence of cellulitis. MS/ Extremity: Pulses equal, no cyanosis. Neurovascular intact. Full, normal range of motion. Neuro: Awake and alert, GCS 15, oriented to person, place, time, and situation. Cranial nerves II-XII grossly intact. Motor strength 5/5 in all extremities. Sensory grossly intact. Cerebellar exam normal. Normal gait. 08:34 Constitutional: The patient appears alert, awake, febrile. 08:34 ENT: Ear canal(s): are normal, TM's: are normal, Nose: is normal, Mouth: is normal, Posterior pharynx: erythema, that is moderate, Voice: is normal. 08:34 Abdomen/GI: Inspection: abdomen appears normal, Bowel sounds: normal, Palpation: mild abdominal tenderness, moderate abdominal tenderness, in all quadrants. Vital Signs: 08:26 BP 121 / 90; Pulse 110; Resp 16 S; Temp 99.4(O); Pulse Ox 97% on R/A; Weight 107.95 kg; iw Height 5 ft. 11 in. (180.34 cm); Pain 7/10; 09:00 BP 122 / 89; Pulse 108; Resp 18 S; Pulse Ox 98% on R/A; aa5 08:26 Body Mass Index 33.19 (107.95 kg, 180.34 cm) iw MDM: 08:20 Patient medically screened. snw 08:50 Data reviewed: vital signs, nurses notes. Data interpreted: Pulse oximetry: on room air snw is 97 %. Interpretation: normal. Counseling: I had a detailed discussion with the patient and/or guardian regarding: the historical points, exam findings, and any diagnostic results supporting the discharge/admit diagnosis, the presence of at least one elevated blood pressure reading (>120/80) during this emergency department visit, lab results, the need for outpatient follow up, to return to the emergency department if symptoms worsen or persist or if there are any questions or concerns that arise at home. Special discussion: Based on the history and exam findings, there is no indication for further emergent testing or inpatient evaluation. I discussed with the patient/guardian the need to see the primary care provider for further evaluation of the symptoms. 10/20 08:19 Order name: Flu; Complete Time: 08:47 snw 10/20 08:19 Order name: Strep; Complete Time: 08:47 snw 10/20 08:45 Order name: Throat Culture EDMS Administered Medications: 08:55 Drug: Tamiflu 75 mg Route: PO; aa5 09:09 Follow up: Response: No adverse reaction iw 08:55 Drug: Zofran 4 mg Route: PO; aa5 09:09 Follow up: Response: No adverse reaction iw Disposition: 09:14 Co-signature as Attending Physician, Pradeep Butt MD. rn Disposition: 10/20/18 08:49 Discharged to Home. Impression: Influenza due to identified novel influenza A virus. - Condition is Stable. - Discharge Instructions: Fever, Adult, Influenza, Adult, Cough, Adult, Rehydration, Adult. - Prescriptions for Tamiflu 75 mg Oral Capsule - take 1 capsule by ORAL route every 12 hours for 5 days; 10 capsule. Zofran 4 mg Oral Tablet - take 1 tablet by ORAL route every 12 hours As needed; 6 tablet. Tessalon Perles 100 mg Oral Capsule - take 1 capsule by ORAL route every 8 hours As needed; 15 capsule. - Work release form, Medication Reconciliation Form, Thank You Letter, Antibiotic Education, Prescription Opioid Use form. - Follow up: Private Physician; When: As needed; Reason: Trouble breathing, Worsening of condition. Follow up: Emergency Department; When: As needed; Reason: Worsening of condition. Signatures: Dispatcher [employer] EDMS Teresa Reis, DIRECTOR OF MATH-C DIRECTOR OF MATH-Csnw Elizabeth Palmer, CHUCK WOODS iw Pradeep Butt MD MD rn Calderon, Audri, RN RN aa5 Cal Odell RN RN hj Corrections: (The following items were deleted from the chart) 09:09 08:49 10/20/2018 08:49 Discharged to Home. Impression: Influenza due to identified iw novel influenza A virus. Condition is Stable. Forms are Medication Reconciliation Form, Thank You Letter, Antibiotic Education, Prescription Opioid Use. Follow up: Private Physician; When: As needed; Reason: Trouble breathing, Worsening of condition. Follow up: Emergency Department; When: As needed; Reason: Worsening of condition. snw
--- NOTE | 2018-10-20 08:49 | ER ---
Nurse's Notes [facility] Name: Valentin Jordan Age: 47 yrs Sex: Male : 1970 Arrival Date: 10/20/2018 Time: 08:13 Bed 7 Private MD: Diagnosis: Influenza due to identified novel influenza A virus Presentation: 10/20 08:23 Presenting complaint: Patient states: nausea, body aches, fever, chills, cough since iw last night. Transition of care: patient was not received from another setting of care. Onset of symptoms was October 19, 2018. Risk Assessment: Do you want to hurt yourself or someone else? Patient reports no desire to harm self or others. Initial Sepsis Screen: Does the patient meet any 2 criteria? Does the patient have a suspected source of infection? No. Patient's initial sepsis screen is negative. Care prior to arrival: None. 08:23 Method Of Arrival: Ambulatory iw 08:23 Acuity: RAÚL 4 iw Triage Assessment: 08:32 General: Appears in no apparent distress. uncomfortable, Behavior is calm, cooperative, hj appropriate for age. Pain: Complains of pain in body. Historical: - Allergies: 08:26 No Known Allergies; iw - Home Meds: 08:26 None [Active]; iw - PMHx: 08:26 None; iw - PSHx: 08:26 None; iw - Immunization history:: Adult Immunizations not up to date. - Social history:: Smoking status: Patient uses tobacco products, smokes one pack cigarettes per day. - Ebola Screening: : Patient negative for fever greater than or equal to 101.5 degrees Fahrenheit, and additional compatible Ebola Virus Disease symptoms Patient denies exposure to infectious person Patient denies travel to an Ebola-affected area in the 21 days before illness onset No symptoms or risks identified at this time. Screenin:32 Abuse screen: Denies threats or abuse. Denies injuries from another. Nutritional hj screening: No deficits noted. Tuberculosis screening: No symptoms or risk factors identified. Fall Risk None identified. Assessment: 08:34 General: Appears in no apparent distress. uncomfortable, Behavior is calm, cooperative, hj appropriate for age. Pain: Complains of pain in body. Neuro: Level of Consciousness is awake, alert, obeys commands, Oriented to person, place, time, situation, Appropriate for age. Cardiovascular: Capillary refill < 3 seconds Patient's skin is warm and dry. Respiratory: Airway is patent Respiratory effort is even, unlabored, Respiratory pattern is regular, symmetrical. GI: No signs and/or symptoms were reported involving the gastrointestinal system. : No signs and/or symptoms were reported regarding the genitourinary system. EENT: No signs and/or symptoms were reported regarding the EENT system. Derm: No signs and/or symptoms reported regarding the dermatologic system. Musculoskeletal: No signs and/or symptoms reported regarding the musculoskeletal system. 09:00 Reassessment: Patient is alert, oriented x 3, equal unlabored respirations, skin aa5 warm/dry/pink. Vital Signs: 08:26 BP 121 / 90; Pulse 110; Resp 16 S; Temp 99.4(O); Pulse Ox 97% on R/A; Weight 107.95 kg; iw Height 5 ft. 11 in. (180.34 cm); Pain 7/10; 09:00 BP 122 / 89; Pulse 108; Resp 18 S; Pulse Ox 98% on R/A; aa5 08:26 Body Mass Index 33.19 (107.95 kg, 180.34 cm) iw ED Course: 08:13 Patient arrived in ED. mr 08:14 [facility]C [facility] snw 08:15 Pradeep Butt MD is Attending Physician. snw 08:21 Cal Odell, RN is Primary Nurse. hj 08:26 Triage completed. iw 08:26 Arm band placed on. iw 08:32 Patient has correct armband on for positive identification. Bed in low position. Call hj light in reach. Side rails up X 1. 08:32 Strep Sent. jb1 08:32 Flu Sent. jb1 09:09 No provider procedures requiring assistance completed. Patient did not have IV access iw during this emergency room visit. Administered Medications: 08:55 Drug: Tamiflu 75 mg Route: PO; aa5 09:09 Follow up: Response: No adverse reaction iw 08:55 Drug: Zofran 4 mg Route: PO; aa5 09:09 Follow up: Response: No adverse reaction iw Outcome: 08:49 Discharge ordered by . snw 09:09 Discharged to home ambulatory, with friend. iw 09:09 Condition: good 09:09 Discharge instructions given to patient, Instructed on discharge instructions, follow up and referral plans. medication usage, Demonstrated understanding of instructions, follow-up care, medications, Prescriptions given X 2. 09:09 Patient left the ED. iw Signatures: Matt Morales jb1 Teresa Reis, GEAR MACHINIST-C GEAR MACHINIST-Csnw Dea Loya Elizabeth Palmer RN RN iw Gunjan Arriola RN RN aa5 Cal Odell RN RN hj
[2018-10-20] MEDS ORDERED: ONDANSETRON 4 MG (ODT) TAB ONE (09:03)
[2018-10-20] MEDS ORDERED: OSELTAMIVIR 75 MG CAP ONE (09:03)
== END 2018-10-20 09:09 | disposition home or self-care (01) ==
LOC: ER 08:10
DX: J10.1 Influenza due to other identified influenza virus with other respiratory manifestations (principal); F17.210 Nicotine dependence, cigarettes, uncomplicated
CPT/HCPCS: 87070; 87081; 87804; 99283

== ENCOUNTER 2019-02-05 14:39 | Emergency (ER) | payer OTHER ==
--- OUTSIDE RECORDS SUMMARY | 2019-02-05 14:41 | XMS REPORT ---
:1970 [facility] Address [address] [place] [address] Dr. Nieto [address] [place] [id number] Care Team Providers Name Role Phone Unavailable Unavailable Unavailable Problems This patient has no known problems. Allergies, Adverse Reactions, Alerts This patient has no known allergies or adverse reactions. Medications This patient has no known medications.
--- NOTE | 2019-02-05 15:20 | RAD REPORT ---
EXAM DESCRIPTION: CT - Head Brain Wo Cont - 02/05/2019 3:09 pm CLINICAL HISTORY: difficulty hearing, left ear pain, ringing Headache, drowsiness COMPARISON: No comparisons TECHNIQUE: All CT scans are performed using dose optimization technique as appropriate and may inclu de automated exposure control or mA/KV adjustment according to patient size. FINDINGS: No intracranial hemorrhage, hydrocephalus or extra-axial fluid collection.No areas of brai n edema or evidence of midline shift. Both mastoid air cells are opacified, slightly greater on the left. The calvarium is intact. IMPRESSION: No acute intracranial abnormality. Bilateral mastoid effusions are present, slightly greater on the left.
--- NOTE | 2019-02-05 15:26 | EDPHYS ---
Physician Documentation [facility] Name: Valentin Jordan Age: 48 yrs Sex: Male : 1970 Arrival Date: 02/05/2019 Time: 14:41 Bed 26 Private MD: ED Physician Pradeep Butt HPI: 02/05 14:58 This 48 yrs old Male presents to ER via Ambulatory with complaints of Ear rn Pain. 14:58 The patient presents with hearing loss, pain, tinnitus. The complaints affect the left rn ear. Onset: The symptoms/episode began/occurred 1 year(s) ago. Modifying factors: The symptoms are alleviated by nothing, the symptoms are aggravated by nothing. Severity of symptoms: At their worst the symptoms were mild in the emergency department the symptoms are unchanged. The patient has not experienced similar symptoms in the past. The patient has not recently seen a physician. Reports left ear pain for 1 year, has seen pcp for this, told was wax, has been cleaning ears with peroxide, but reports tinnitus and hearing loss that is getting slowly worse. No trauma. No fever. NO focal neurological deficit. . Historical: - Allergies: 14:42 No Known Allergies; hj - PMHx: 14:42 None; hj - PSHx: 14:42 skin graft; Carpal Tunnel Repair; hj - Family history:: not pertinent. - Ebola Screening: : No symptoms or risks identified at this time. - Hospitalizations: : No recent hospitalization is reported. ROS: 14:58 Constitutional: Negative for fever, chills, and weight loss, Eyes: Negative for injury, rn pain, redness, and discharge, ENT: + left ear pain, tinnitus, left ear hearing loss Neuro: Negative for headache, weakness, numbness, tingling, and seizure. Exam: 14:58 Constitutional: This is a well developed, well nourished patient who is awake, alert, rn and in no acute distress. Head/Face: Normocephalic, atraumatic. Eyes: Pupils equal round and reactive to light, extra-ocular motions intact. Lids and lashes normal. Conjunctiva and sclera are non-icteric and not injected. Cornea within normal limits. Periorbital areas with no swelling, redness, or edema. ENT: Clear bilateral TM, no perforation noted, no effusion, no external swelling or edema. Neck: Trachea midline, no thyromegaly or masses palpated, and no cervical lymphadenopathy. Supple, full range of motion without nuchal rigidity, or vertebral point tenderness. No Meningismus. Skin: Warm, dry with normal turgor. Normal color with no rashes, no lesions, and no evidence of cellulitis. MS/ Extremity: Pulses equal, no cyanosis. Neurovascular intact. Full, normal range of motion. Equal circumference. Neuro: Awake and alert, GCS 15, oriented to person, place, time, and situation. Cranial nerves II-XII grossly intact. Motor strength 5/5 in all extremities. Sensory grossly intact. Cerebellar exam normal. Normal gait. Vital Signs: 14:43 BP 142 / 87; Pulse 110; Resp 16; Temp 97.2(TE); Pulse Ox 96% on R/A; Weight 112.49 kg; hj Height 5 ft. 11 in. (180.34 cm); Pain 10/10; 14:43 Body Mass Index 34.59 (112.49 kg, 180.34 cm) hj MDM: 14:50 Patient medically screened. rn 15:23 Differential diagnosis: otitis media, acute otalgia, cerumen impaction, serotympanum. rn Data reviewed: vital signs, nurses notes, radiologic studies, CT scan, and as a result, I will discharge patient. Counseling: I had a detailed discussion with the patient and/or guardian regarding: the historical points, exam findings, and any diagnostic results supporting the discharge/admit diagnosis, radiology results, the need for outpatient follow up, to return to the emergency department if symptoms worsen or persist or if there are any questions or concerns that arise at home. Special discussion: I discussed with the patient/guardian in detail that at this point there is no indication for admission to the hospital. It is understood, however, that if the symptoms persist or worsen the patient needs to return immediately for re-evaluation. Based on the history and exam findings, there is no indication for further emergent testing or inpatient evaluation. I discussed with the patient/guardian the need to see the ENT specialist for further evaluation of the symptoms. ED course: Symptoms present for about 1 year, no acute findings on CT head, will dc home with ENT f/u as needed, reports has private ENT at [facility].. 02/05 14:59 Order name: CT Head Brain wo Cont; Complete Time: 15:23 rn Administered Medications: 15:36 Drug: TORadol 30 mg Route: IM; Site: right deltoid; ca1 15:55 Follow up: Response: No adverse reaction aa5 Disposition: 02/05/19 15:25 Discharged to Home. Impression: Tinnitus, left ear, Encounter for examination of ears and hearing. - Condition is Stable. - Discharge Instructions: Tinnitus. - Prescriptions for Augmentin 875- 125 mg Oral Tablet - take 1 tablet by ORAL route every 12 hours for 10 days; 20 tablet. - Medication Reconciliation Form, Thank You Letter, Antibiotic Education, Prescription Opioid Use, Work release form form. - Follow up: Private Physician; When: As needed; Reason: Recheck today's complaints, Re-evaluation by your physician. - Problem is an ongoing problem. - Symptoms are unchanged. Signatures: Dispatcher [employer] EDMS Pradeep Butt MD MD rn Calderon, Audri RN RN aa5 Cal Odell RN RN hj Dorothy Julio RN RN ca1 Corrections: (The following items were deleted from the chart) 15:57 15:25 02/05/2019 15:25 Discharged to Home. Impression: Tinnitus, left ear; Encounter aa5 for examination of ears and hearing. Condition is Stable. Forms are Medication Reconciliation Form, Thank You Letter, Antibiotic Education, Prescription Opioid Use. Follow up: Private Physician; When: As needed; Reason: Recheck today's complaints, Re-evaluation by your physician. Problem is an ongoing problem. Symptoms are unchanged. rn
--- NOTE | 2019-02-05 15:26 | ER ---
Nurse's Notes [facility] Name: Valentin Jordan Age: 48 yrs Sex: Male : 1970 Arrival Date: 02/05/2019 Time: 14:41 Bed 26 Private MD: Diagnosis: Tinnitus, left ear;Encounter for examination of ears and hearing Presentation: 02/05 14:41 Presenting complaint: Patient states: i cant hear, its been going on for a year now, i hj was told i have a bunch of wax and now my eyes are twitching;. Transition of care: patient was not received from another setting of care. Onset of symptoms was February 05, 2019. Risk Assessment: Do you want to hurt yourself or someone else? Patient reports no desire to harm self or others. Initial Sepsis Screen: Does the patient meet any 2 criteria? No. Patient's initial sepsis screen is negative. Does the patient have a suspected source of infection? No. Patient's initial sepsis screen is negative. Care prior to arrival: None. 14:41 Method Of Arrival: Ambulatory 14:41 Acuity: RAÚL 4 hj Historical: - Allergies: 14:42 No Known Allergies; hj - PMHx: 14:42 None; hj - PSHx: 14:42 skin graft; Carpal Tunnel Repair; hj - Family history:: not pertinent. - Ebola Screening: : No symptoms or risks identified at this time. - Hospitalizations: : No recent hospitalization is reported. Screenin:50 Abuse screen: Denies threats or abuse. Nutritional screening: No deficits noted. aa5 Tuberculosis screening: No symptoms or risk factors identified. Fall Risk None identified. Assessment: 14:50 General: Appears comfortable, unkempt, Behavior is calm, cooperative. Pain: Denies aa5 pain. Neuro: Level of Consciousness is awake, alert, obeys commands, Oriented to person, place, time, situation. Cardiovascular: Patient's skin is warm and dry. Respiratory: Airway is patent Respiratory effort is even, unlabored, Respiratory pattern is regular, symmetrical. GI: No signs and/or symptoms were reported involving the gastrointestinal system. : No signs and/or symptoms were reported regarding the genitourinary system. EENT: Reports "I've had ringing in my left ear that comes and goes for like a year now and I can't hear out of my left ear" . Derm: Skin is pink, warm \\T\\ dry. Musculoskeletal: Range of motion: intact in all extremities. 15:55 Reassessment: Patient is alert, oriented x 3, equal unlabored respirations, skin aa5 warm/dry/pink. Vital Signs: 14:43 BP 142 / 87; Pulse 110; Resp 16; Temp 97.2(TE); Pulse Ox 96% on R/A; Weight 112.49 kg; hj Height 5 ft. 11 in. (180.34 cm); Pain 10/10; 14:43 Body Mass Index 34.59 (112.49 kg, 180.34 cm) hj ED Course: 14:41 Patient arrived in ED. hj 14:42 Triage completed. hj 14:42 Arm band placed on right wrist. hj 14:49 Gunjan Arriola, RN is Primary Nurse. aa5 14:50 Pradeep Butt MD is Attending Physician. rn 14:50 Patient has correct armband on for positive identification. Bed in low position. Call aa5 light in reach. Side rails up X 1. Adult w/ patient. 15:05 No provider procedures requiring assistance completed. aa5 15:10 CT Head Brain wo Cont In Process Unspecified. EDMS 15:55 Patient did not have IV access during this emergency room visit. aa5 Administered Medications: 15:36 Drug: TORadol 30 mg Route: IM; Site: right deltoid; ca1 15:55 Follow up: Response: No adverse reaction aa5 Outcome: 15:25 Discharge ordered by . rn 15:55 Discharged to home ambulatory, with significant other. aa5 15:55 Condition: stable 15:55 Discharge instructions given to patient, Instructed on discharge instructions, follow up and referral plans. medication usage, Demonstrated understanding of instructions, follow-up care, medications, Prescriptions given X 1. 15:57 Patient left the ED. aa5 Signatures: Dispatcher [employer] EDMS Pradeep Butt MD MD rn Calderon, Audri, RN RN aa5 Cal Odell RN RN Dorothy Julio RN RN ca1 Corrections: (The following items were deleted from the chart) 14:45 14:43 Pulse 110bpm; Resp 16bpm; Pulse Ox 96% RA; Temp 97.2F Temporal; 112.49 kg; Height hj 5 ft. 11 in.; BMI: 34.5; Pain 05/01; hj 16:09 14:50 General: Appears comfortable, Behavior is calm, cooperative, aa5 aa5
[2019-02-05] MEDS ORDERED: KETOROLAC 30 MG/ML INJ ONE (15:50)
== END 2019-02-05 15:57 | disposition home or self-care (01) ==
LOC: ER 14:39
DX: H93.12 Tinnitus, left ear (principal)
CPT/HCPCS: 70450

== ENCOUNTER 2019-03-23 19:26 | Emergency (ER) | payer OTHER ==
--- OUTSIDE RECORDS SUMMARY | 2019-03-23 19:29 | XMS REPORT | Summary of Care ---
:1970 Author Organization [facility] Address [address] [place] [address] Care Team Providers Name Role Phone Emilie Del Cid Primary Care Provider Reason for Visit Reason Comments Audiological Evaluation (Routine) Status Reason Specialty Diagnoses / Procedures Referred By Contact Referred To Contact Closed Audiology Diagnoses PEDRO (middle ear effusion), left Conductive hearing loss of left ear, unspecified hearing status on contralateral side Eric Dueñas MD Procedures CONSULT/REFERRAL AUDIOLOGY [address] [facility] [id number] [place] [address] Encounter Details Date Type Department Care Team Description 02/26/2019 Ancillary Visit [facility] for Miracle Miguel, PHD [address] [facility] [address] [place], [place] [address] Conductive hearing Audiology & Speech [facility] [employer] [facility] loss of left ear with [facility] unrestricted hearing [address] [facility]. of right ear ([place], [place]) [phone] Allergies No Known Allergiesdocumented as of this encounter (statuses as of 02/27/2019) Medications Medication Sig Dispensed Refills Start Date End Date Status cyclobenzaprine 5 mg Take 1 tablet 30 tablet 0 12/15/2017 Active tablet by mouth 3 (three) times daily. sod tesqk-jygxwp-iyxvbo Use 1 Bottle in 1 Each 0 02/07/2019 Active bottle (NEILMED SINUS each nostril 2 RINSE COMPLETE) (two) times pkdvIndications: Acute daily. Use in frontal sinusitis, hot shower 1 recurrence not hour before specified, Allergic bedtime rhinitis with postnasal drip, Eustachian tube dysfunction, bilateral loratadine 10 mg Take 1 tablet 30 tablet 0 02/07/2019 Active tabletIndications: by mouth daily. Acute frontal sinusitis, recurrence not specified, Allergic rhinitis with postnasal drip, Eustachian tube dysfunction, bilateral ranitidine 300 mg Take 1 tablet 30 tablet 2 02/27/2019 05/28/2019 Active tabletIndications: LPRD by mouth at (laryngopharyngeal bedtime for 90 reflux disease) days. fluticasone propionate Use 2 Sprays in 1 Bottle 6 02/27/2019 05/28/2019 Active 50 mcg/actuation nasal each nostril 2 sprayIndications: PEDRO (two) times (middle ear effusion), daily for 90 left days. Use after any saline nasal spray. documented as of this encounter (statuses as of 02/27/2019) Active Problems No known active problemsdocumented as of this encounter (statuses as of 2018) Social History Tobacco Use Types Packs/Day Years Used Date Never Assessed Sex Assigned at Date Recorded Not on file Job Start Date Occupation Industry Not on file Not on file Not on file Travel History Travel Start Travel End No recent travel history available. documented as of this encounter Last Filed Vital Signs Not on filedocumented in this encounter Progress Notes Jailyn Singh - 02/26/2019 3:15 PM CDTAudiogram/Hearing Evaluation will be scanned and will be available in Chart Review under the Procedures tab. Bridger Cao. Audiology Manager [employer] documented in this encounter Plan of Treatment Date Type Specialty Care Team Description 03/19/2019 Office Visit Otolaryngology Eric Dueñas MD [address] [facility] [id number] [place], [place] [id number] Health Maintenance Due Date Last Done Comments DTaP,Tdap,and Td Vaccines (1 - 12/24/1990 Tdap) INFLUENZA VACCINE 03/23/2019 PNEUMOCOCCAL 0-64 YEARS COMBINED Aged Out No longer eligible based on SERIES patient's age to complete this topic documented as of this encounter Results Not on filedocumented in this encounter Visit Diagnoses Diagnosis Conductive hearing loss of left ear with unrestricted hearing of right ear - Primary documented in this encounter Insurance Payer Benefit Plan / Subscriber ID Effective Dates Phone Address Type Group [facility] xxxxxxxxx 2018-Present Medicaid COMM PLAN - MANAGED MEDICAID documented as of this encounter
--- OUTSIDE RECORDS SUMMARY | 2019-03-23 19:29 | XMS REPORT | Summary of Care ---
:1970 Author Organization [facility] Address [address] [place] [address] Care Team Providers Name Role Phone Emilie Del Cid Primary Care Provider Reason for Referral (Routine) Status Reason Specialty Diagnoses / Procedures Referred By Contact Referred To Contact Closed Audiology Diagnoses PEDRO (middle ear effusion), left Conductive hearing loss of left ear, unspecified hearing status on contralateral side Eric Dueñas MD Procedures CONSULT/REFERRAL AUDIOLOGY [address] [place] [address] [id number] [place] [address] Reason for Visit Reason Comments New Evaluation left ear pain Encounter Details Date Type Department Care Team Description 02/26/2019 Office Visit [facility] Ear, Nose Eric Dueñas, PEDRO (middle ear effusion), left (Primary Dx); [facility]- Conductive hearing loss of left ear, unspecified hearing status on contralateral side; [address] Smokes less than 2 packs a day with greater than 30 pack year history; [address] [place] [address]. [id number] LPRD (laryngopharyngeal reflux disease) [place] [address] [id number] Allergies No Known Allergiesdocumented as of this encounter (statuses as of 02/27/2019) Medications Medication Sig Dispensed Refills Start Date End Date Status cyclobenzaprine 5 mg Take 1 tablet 30 tablet 0 12/15/2017 Active tablet by mouth 3 (three) times daily. sod rahty-snlyei-vdgbsi Use 1 Bottle in 1 Each 0 [...] of this encounter Last Filed Vital Signs Vital Sign Reading Time Taken Comments Blood Pressure - - Pulse - - Temperature 37.1 C (98.8 F) 02/26/2019 2:31 PM CDT Respiratory Rate - - Oxygen Saturation - - Inhaled Oxygen Concentration - - Weight 115.6 kg (254 lb 12.8 oz) 02/26/2019 2:31 PM CDT Height 180.3 cm (5' 11") 02/26/2019 2:31 PM CDT Body Mass Index 35.54 02/26/2019 2:31 PM CDT documented in this encounter Patient Instructions Patient InstructionsDebby Ambrose - 02/26/2019 2:45 PM CDT-Please bring ct scan disk to follow up 4 :36 PM CDT documented in this encounter Progress Notes Devarajan, Mann, MD - 02/26/2019 2:45 PM CDT Name: Valentin Jordan MR No: [id number] Provider: Eric Dueñas M.D. Date: 02/26/2019 History: Chief Complaint: New Evaluation (left ear pain) History of Present Illness: Valentin Jordan is a 48 year old male seen in consultation at the request of Dr. Emilie Del Cid for a 2 year history of left ear pain and ringing. Reports getting q-tip stuck in left ear 2 years ago and after removal by [facility] in clinic - he reports muffled hearing on left attributed to procedure. Pt reports recent CT scan "showing fluid behind the bone." Pt is a daily smoker. Has GERD and nasal congestion / seasonal rhinorrhea. Reports dentures do not fit well and jaw-pops on occasion. Pt denies otorrhea, room-spinning dizziness, pulsatile tinnitus, disequilibrium , hx of ototoxin exposure, hx of head trauma, hx of ear infections or meningitis , hx of ear surgery, hx of radiation exposure. Patient denies dyspnea, dysphagia , odynophagia, neck masses, unintended weight changes, hemoptysis, head/neck skin lesions, fevers, chills. Past Medical Hx: Denies No past medical history on file. Past Surgical Hx: Carpel tunnel surgery No past surgical history on file. Family History: Denies fhx of hearing loss No family history on file. Social History: Daily smoker (1ppd x 30+ yrs) Medications: Current Outpatient Medications Medication Sig loratadine 10 mg tablet Take 1 tablet by mouth daily. sod hxnyq-lrkkga-hoioje bottle (NEILMED SINUS RINSE COMPLETE) pkdv Use 1 Bottle in each nostril 2 (two) times daily. Use in hot shower 1 hour before bedtime cyclobenzaprine 5 mg tablet Take 1 tablet by mouth 3 (three) times daily. Allergies to Meds: Patient has no known allergies. Review of systems: CONSTITUTIONAL: negative; EYES: negative; ENT: See HPI; CARDIOVASCULAR: negative; RESPIRATORY: negative; GASTROINTESTINAL: GERD; GENITOURINARY: negative; MUSCULOSKELETAL: negative; SKIN: negative; NEUROLOGICAL: negative; PSYCHIATRIC: negative; ENDOCRINE: negative; HEMATOLOGIC/ LYMPHATIC:negative; ALLERGIC/ IMMUNOLOGIC: allergic rhinitis. Physical Exam: CONSTITUTIONAL: No acute distress, raspy voice Vital Signs: Temp 37.1 C (98.8 F) (Tympanic) | Ht 5' 11" (1.803 m) | Wt 254 lb 12.8 oz (115.6 kg) | BMI 35.54 kg/m EYES: Normal gaze alignment EARS, NOSE, MOUTH, AND THROAT: Otoscopic Examination using Binocular Microscopy: LEFT EAR External canal was normal. There was minimal cerumen. Cerumenectomy was not performed. Tympanic membrane was retracted. Middle ear fluid. Pneumotoscopy: Hypomobile. RIGHT EAR External canal was normal. There was minimal cerumen. Cerumenectomy was not performed. Tympanic membrane was normal. Middle ear appeared normal. Pneumotoscopy: Normal mobility. No objective tinnitus bilaterally T[place] Exams: - Rinne: RIGHT: 256 Hz: POS; 512 Hz: POS; 1024 Hz: POS LEFT: 256 Hz: NEG; 512 Hz: NEG; 1024 Hz: NEG - Gonzalez (512 Hz): LEFT External Ears: unremarkable External Nose: unremarkable Nasal Exam: unremarkable Oral Exam: unremarkable, edentulous Lips, Teeth, and Gums: unremarkable Larynx: Deferred due to gag reflex FACE/HEAD: Atraumatic, +TMJ crepitus/tenderness CARDIOVASCULAR: Extremities were warm. RESPIRATORY: There was normal chest expansion SKIN: Normal NEUROLOGICAL: Cranial nerves II-XII grossly intact PSYCHIATRIC: Normal Affect HEMATOLOGICAL/ LYMPHATIC: No cervical lymphadenopathy Medical Decision Making: DATA: Data Reviewed: Medical: PMH as detailed in EMR Audiogram 02/26/2019: Left CHL and Type C tymp Right thresholds WNL and Type As tymp Radiology: None Laboratory: None Tests and procedures ordered: Medical: Flonase, Zantac Radiology: None Laboratory: None Orders Placed This Encounter Procedures CONSULT/REFERRAL AUDIOLOGY Smoking Cessation / Tobacco Avoidance Education DIAGNOSES: ICD-10-CM ICD-9-CM 1. PEDRO (middle ear effusion), left H65.92 381.4 2. Conductive hearing loss of left ear, unspecified hearing status on contralateral side H90.12 389.05 3. Smokes less than 2 packs a day with greater than 30 pack year history F17.210 305.1 Risk: Moderate PROCEDURE: Binocular Microscopy CPT 51060 as described above. Assessment and Plan: 48M with GERD, allergic rhinitis, current 30+ pack-year TOB hx and 2 year hx of Left-sided muffled hearing with Left serous fluid on binocular microscopy and Left CHL / Type C tymp on audiogram today. - Discussed r/b/a of myringotomy - patient is interested but would like to make another appointment for this. - Discussed that we would perform FNL at next visit given smoking hx, unilateral left aural fullness/PEDRO, and chronic raspy voice. - Reinforced smoking cessation. - Flonase for allergic rhinitis - Zantac QHS and reflux ppx reviewed - Encouraged to bring OSH CT Head / T-bone - RTC 3 weeks for possible left myringotomy / PE tube and FNL Patient was seen and examined with Dr. Dueñas, with whom the above assessment and plan were made. Mann Bryan MD TIM-HNS PGY-3 [id number] signed by Mann Bryan MD at 02/27/2019 3:07 AM CDTdocumented in this encounter Plan of Treatment Date Type Specialty Care Team Description 03/19/2019 Office Visit Otolaryngology Eric Dueñas MD [id number] [place] [address] Health Maintenance Due Date Last Done Comments DTaP,Tdap,and Td Vaccines (1 - 12/24/1990 Tdap) INFLUENZA VACCINE 03/23/2019 PNEUMOCOCCAL 0-64 YEARS COMBINED Aged Out No longer eligible based on SERIES patient's age to complete this topic documented as of this encounter Results Not on filedocumented in this encounter Visit Diagnoses Diagnosis PEDRO (middle ear effusion), left - Primary Conductive hearing loss of left ear, unspecified hearing status on contralateral side Smokes less than 2 packs a day with greater than 30 pack year history Tobacco use disorder LPRD (laryngopharyngeal reflux disease) Other diseases of larynx documented in this encounter Insurance Payer Benefit Plan / Subscriber ID Effective Dates Phone Address Type Group [facility] xxxxxxxxx 2018-Present Medicaid COMM PLAN - MANAGED MEDICAID documented as of this encounter
--- OUTSIDE RECORDS SUMMARY | 2019-03-23 19:29 | XMS REPORT | Summary of Care ---
:1970 Author Organization [facility] Address [address] [place] [address] Care Team Providers Name Role Phone Emilie Del Cid Primary Care Provider Reason for Referral (Routine) Status Reason Specialty Diagnoses / Procedures Referred By Contact Referred To Contact Closed Audiology Diagnoses PEDRO (middle ear effusion), left Conductive hearing loss of left ear, unspecified hearing status on contralateral side Eric Dueñas MD Procedures CONSULT/REFERRAL AUDIOLOGY [address] [place] [address] [id number] [place] [address] Reason for Visit Reason Comments New Evaluation left ear pain Encounter Details Date Type Department Care Team Description 02/26/2019 Office Visit [facility] Ear, Nose Eric Dueñas, PEDRO (middle ear effusion), left (Primary Dx); & [facility]- Conductive hearing loss of left ear, unspecified hearing status on contralateral side; [address] Smokes less than 2 packs a day with greater than 30 pack year history; [address] [place] [address]. [id number] LPRD (laryngopharyngeal reflux disease) [place] [id number] Allergies No Known Allergiesdocumented as of this encounter (statuses as of 02/27/2019) Medications Medication Sig Dispensed Refills Start Date End Date Status cyclobenzaprine 5 mg Take 1 tablet 30 tablet 0 12/15/2017 Active tablet by mouth 3 (three) times daily. sod dzyrq-gjaril-itgikq Use 1 Bottle in 1 Each 0 [...] PM CDT Name: Valentin Jordan MR No: [id number] Provider: Eric Dueñas M.D. Date: 02/26/2019 History: [...] Take 1 tablet by mouth daily. sod eiqnv-doyqoi-cqflwr bottle (NEILMED SINUS RINSE COMPLETE) pkdv Use [...] 305.1 Risk: Moderate PROCEDURE: Binocular Microscopy CPT 20056 as described above. Assessment and Plan: 48M [...] were made. Mann Bryan MD TIM-HNS PGY-3 [id number] signed by Mann Bryan MD at 02/27/2019 3:07 AM CDTdocumented in this encounter Plan of Treatment Date Type Specialty Care Team Description 03/19/2019 Office Visit Otolaryngology Eric Dueñas MD [address] [place] [address] Health Maintenance Due Date Last [...] ID Effective Dates Phone Address Type Group [facility] xxxxxxxxx 2018-Present Medicaid COMM PLAN - MANAGED MEDICAID documented as of this encounter
--- OUTSIDE RECORDS SUMMARY | 2019-03-23 19:29 | XMS REPORT | Summary of Care ---
:1970 Author Organization [facility] Address [address] [place] [address] Care Team Providers Name Role Phone Emilie Del Cid Primary Care Provider Reason for Visit Reason Comments Appointment Encounter Details Date Type Department Care Team Description 03/19/2019 Telephone [facility] and Marco Mackenzie MD Appointment Clinics [address] [place] [address]. [address] [place] [address] [place] [phone] Allergies No Known Allergiesdocumented as of this encounter (statuses as of 03/19/2019) Medications Medication Sig Dispensed Refills Start Date End Date Status cyclobenzaprine 5 mg Take 1 tablet 30 tablet 0 12/15/2017 Active tablet by mouth 3 (three) times daily. sod sozui-ajfujs-qhvvga Use 1 Bottle in 1 Each 0 [...] as of this encounter (statuses as of 03/19/2019) Active Problems No known active problemsdocumented as [...] Signs Not on filedocumented in this encounter Plan of Treatment Date Type Specialty Care Team Description 03/26/2019 Office Visit Otolaryngology Eric Dueñas MD [address] [facility] [id number] [place], [place] [id number] Health Maintenance Due Date Last Done Comments DTaP,Tdap,and Td Vaccines (1 - 12/24/1990 Tdap) INFLUENZA VACCINE (#1) 2019 PNEUMOCOCCAL 0-64 YEARS COMBINED Aged Out No longer eligible based on SERIES patient's age to complete this topic documented as of this encounter Results Not on filedocumented in this encounter Insurance Payer Benefit Plan / Subscriber ID Effective Dates Phone Address Type Group [facility] xxxxxxxxx 2018-Present Medicaid COMM PLAN - MANAGED MEDICAID documented as of this encounter
--- OUTSIDE RECORDS SUMMARY | 2019-03-23 19:29 | XMS REPORT ---
:1970 Author Organization [facility] Address [address] [place] [address] Dr. Nieto [address] [place] [address] Care Team Providers Name Role Phone Unavailable Unavailable Unavailable Problems This patient has no known problems. Allergies, Adverse Reactions, Alerts This patient has no known allergies or adverse reactions. Medications This patient has no known medications.
--- OUTSIDE RECORDS SUMMARY | 2019-03-23 19:29 | XMS REPORT | Summary of Care ---
:1970 Author Organization [facility] Address [address] [place] [address] Care Team Providers Name Role Phone Emilie Del Cid Primary Care Provider Encounter Details Date Type Department Care Team Description 02/26/2019 Orders Only [facility] Doctor Unassigned, No [address] [facility] Name [place] [id number] [address] [place] [id number] Allergies No Known Allergiesdocumented as of this encounter (statuses as of 02/26/2019) Medications Medication Sig Dispensed Refills Start Date End Date Status cyclobenzaprine 5 mg Take 1 tablet by 30 tablet 0 12/15/2017 Active tablet mouth 3 (three) times daily. sod fggme-kxxgfe-rfwzqr Use 1 Bottle in 1 Each 0 02/07/2019 Active bottle (NEILMED SINUS each nostril 2 RINSE COMPLETE) (two) times pkdvIndications: Acute daily. Use in frontal sinusitis, hot shower 1 recurrence not hour before specified, Allergic bedtime rhinitis with postnasal drip, Eustachian tube dysfunction, bilateral loratadine 10 mg Take 1 tablet by 30 tablet 0 02/07/2019 Active tabletIndications: Acute mouth daily. frontal sinusitis, recurrence not specified, Allergic rhinitis with postnasal drip, Eustachian tube dysfunction, bilateral documented as of this encounter (statuses as of 02/26/2019) Active Problems No known active problemsdocumented as [...] Treatment Date Type Specialty Care Team Description 02/26/2019 Office Visit Otolaryngology Eric Dueñas MD Arrived [address] [place], [place] [phone] Health Maintenance Due Date Last Done Comments DTaP,Tdap,and Td Vaccines ( - 12/24/1990 Tdap) INFLUENZA VACCINE 03/23/2019 PNEUMOCOCCAL 0-64 YEARS COMBINED Aged Out No longer eligible based on SERIES patient's age to complete this topic documented as of this encounter Procedures Procedure Name Priority Date/Time Associated Diagnosis Comments ASSIGNMENT OF BENEFITS Routine 02/26/2019 2:03 PM CDT documented in this encounter Results Not on filedocumented in this encounter Insurance Payer Benefit Plan / Subscriber ID Effective Dates Phone Address Type Group [facility] xxxxxxxxx 2018-Present Medicaid COMM PLAN - MANAGED MEDICAID documented as of this encounter
[2019-03-23] MEDS ORDERED: IBUPROFEN 400 MG TAB ONE (20:15)
--- NOTE | 2019-03-23 20:56 | ER ---
Nurse's Notes [facility] Name: Valentin Jordan Age: 48 yrs Sex: Male : 1970 Arrival Date: 03/23/2019 Time: 19:28 Bed 25 Private MD: Diagnosis: Pain in left foot Presentation: 03/23 19:32 Presenting complaint: Patient states: I have been having left foot pain for the last la1 few days, no known injury. Transition of care: patient was not received from another setting of care. Onset of symptoms was March 23, 2019. Risk Assessment: Do you want to hurt yourself or someone else? Patient reports no desire to harm self or others. Initial Sepsis Screen: Does the patient meet any 2 criteria? No. Patient's initial sepsis screen is negative. Does the patient have a suspected source of infection? No. Patient's initial sepsis screen is negative. Care prior to arrival: None. 19:32 Method Of Arrival: Wheelchair la1 19:32 Acuity: RAÚL 4 la1 Historical: - Allergies: 19:33 No Known Allergies; la1 - PMHx: 19:33 None; la1 - Immunization history:: Adult Immunizations up to date. - Social history:: Smoking status: unknown. - Ebola Screening: : No symptoms or risks identified at this time. Screenin:44 Abuse screen: Denies threats or abuse. Denies injuries from another. Nutritional rv screening: No deficits noted. Tuberculosis screening: No symptoms or risk factors identified. Fall Risk None identified. Assessment: 19:43 General: Appears in no apparent distress. comfortable, Behavior is calm, cooperative. rv Pain: Complains of pain in left foot. Neuro: Level of Consciousness is awake, alert, obeys commands, Oriented to person, place, time, situation. Cardiovascular: Patient's skin is warm and dry. Respiratory: Airway is patent. GI: No signs and/or symptoms were reported involving the gastrointestinal system. : No signs and/or symptoms were reported regarding the genitourinary system. EENT: No signs and/or symptoms were reported regarding the EENT system. Derm: Skin is intact. Musculoskeletal: Swelling absent. Vital Signs: 19:32 BP 125 / 86; Pulse 84; Resp 16; Temp 97.6; Pulse Ox 98% on R/A; Weight 117.93 kg; la1 Height 5 ft. 11 in. (180.34 cm); 21:03 BP 125 / 76; Pulse 81; Resp 17; Temp 97.8; Pulse Ox 98% on R/A; rv 19:32 Body Mass Index 36.26 (117.93 kg, 180.34 cm) la1 ED Course: 19:28 Patient arrived in ED. cf2 19:29 Arm band placed on left wrist. la1 19:32 Triage completed. la1 19:39 Awais Gutierrez, RN is Primary Nurse. rv 19:45 Patient has correct armband on for positive identification. Bed in low position. Call rv light in reach. Side rails up X 1. Pulse ox on. NIBP on. 19:48 Jay Velez MD is Attending Physician. kdr 20:30 Foot Left 3 View XRAY In Process Unspecified. EDMS 21:04 No provider procedures requiring assistance completed. Patient did not have IV access rv during this emergency room visit. Administered Medications: 20:13 Drug: Ibuprofen 800 mg Route: PO; ca1 21:00 Follow up: Response: No adverse reaction; Pain is decreased rv Outcome: 20:55 Discharge ordered by . kdr 21:04 Discharged to home ambulatory. rv 21:04 Condition: good 21:04 Discharge instructions given to patient, Instructed on discharge instructions, follow up and referral plans. medication usage, Demonstrated understanding of instructions, follow-up care, medications, Prescriptions given X 2. 21:05 Patient left the ED. rv Signatures: Dispatcher [employer] EDMS Jay Velez MD MD kdr Herberth Greenberg RN RN la1 Awasi Gutierrez, CHUCK WOODS rv Dorothy Julio RN RN ca1 Donny Oreilly cf2
--- NOTE | 2019-03-23 20:57 | EDPHYS ---
Physician Documentation [facility] Name: Valentin Jordan Age: 48 yrs Sex: Male : 1970 Arrival Date: 03/23/2019 Time: 19:28 Bed 25 Private MD: ED Physician Jay Velez HPI: 03/23 20:06 This 48 yrs old Male presents to ER via Wheelchair with complaints of Foot kdr Pain. 20:06 The patient presents with pain, that is acute. The complaints affect the left foot. kdr Context: The problem was sustained at home, resulted from an unknown cause, Mechanism of Injury: Unknown the patient can fully bear weight, the patient is able to ambulate, with mild difficulty. Onset: The symptoms/episode began/occurred suddenly, 2 day(s) ago. Modifying factors: The symptoms are alleviated by nothing, the symptoms are aggravated by weight bearing, movement. Associated signs and symptoms: Pertinent positives: Pain radiates to left leg, hip and buttock. Severity of symptoms: At their worst the symptoms were mild, in the emergency department the symptoms have improved, moderately. The patient has not experienced similar symptoms in the past. The patient has not recently seen a physician. 20:39 The patient was stable in the ED and without any evidence of acute illness or injury. kdr Historical: - Allergies: 19:33 No Known Allergies; la1 - PMHx: 19:33 None; la1 - Immunization history:: Adult Immunizations up to date. - Social history:: Smoking status: unknown. - Ebola Screening: : No symptoms or risks identified at this time. ROS: 20:06 Constitutional: Negative for fever, chills, and weight loss, Eyes: Negative for injury, kdr pain, redness, and discharge, Neck: Negative for injury, pain, and swelling, Cardiovascular: Negative for chest pain, palpitations, and edema, Respiratory: Negative for shortness of breath, cough, wheezing, and pleuritic chest pain, Abdomen/GI: Negative for abdominal pain, nausea, vomiting, diarrhea, and constipation. 20:06 MS/extremity: Positive for pain, Negative for abrasion, contusion, decreased range of motion, deformity, ecchymosis, erythema, paresthesias, swelling, warmth. Exam: 20:06 Constitutional: This is a well developed, well nourished patient who is awake, alert, kdr and in no acute distress. Head/Face: Normocephalic, atraumatic. 20:06 Musculoskeletal/extremity: ROM: intact in all extremities, Circulation is intact in all extremities. Sensation intact. Weight bearing: can bear weight with assistance only, The patient is able to partially weight. Vital Signs: 19:32 BP 125 / 86; Pulse 84; Resp 16; Temp 97.6; Pulse Ox 98% on R/A; Weight 117.93 kg; la1 Height 5 ft. 11 in. (180.34 cm); 21:03 BP 125 / 76; Pulse 81; Resp 17; Temp 97.8; Pulse Ox 98% on R/A; rv 19:32 Body Mass Index 36.26 (117.93 kg, 180.34 cm) la1 MDM: 20:06 Data reviewed: vital signs, nurses notes, radiologic studies. Counseling: I had a kdr detailed discussion with the patient and/or guardian regarding: the historical points, exam findings, and any diagnostic results supporting the discharge/admit diagnosis, radiology results, the need for outpatient follow up. 20:55 Patient medically screened. kdr 03/23 20:05 Order name: Foot Left 3 View XRAY kdr Administered Medications: 20:13 Drug: Ibuprofen 800 mg Route: PO; ca1 21:00 Follow up: Response: No adverse reaction; Pain is decreased rv Disposition: 03/23/19 20:55 Discharged to Home. Impression: Pain in left foot. - Condition is Stable. - Prescriptions for Ibuprofen 800 mg Oral Tablet - take 1 tablet by ORAL route every 8 hours As needed take with food; 15 tablet. Tramadol 50 mg Oral Tablet - take 1 tablet by ORAL route every 8 hours as needed; 12 tablet. - Medication Reconciliation Form, Thank You Letter form. - Follow up: Private Physician; When: 2 - 3 days; Reason: If symptoms return, Further diagnostic work-up, Recheck today's complaints, Continuance of care, Re-evaluation by your physician. - Problem is new. - Symptoms are unchanged. Signatures: Dispatcher [employer] EDMS Jay Velez MD MD kdr Herberth Greenberg RN RN la1 Awais Gutierrez RN RN rv AcDorothy love RN RN ca1 Corrections: (The following items were deleted from the chart) 21:05 20:55 03/23/2019 20:55 Discharged to Home. Impression: Pain in left foot. Condition is rv Stable. Forms are Medication Reconciliation Form, Thank You Letter, Antibiotic Education, Prescription Opioid Use. Follow up: Private Physician; When: 2 - 3 days; Reason: If symptoms return, Further diagnostic work-up, Recheck today's complaints, Continuance of care, Re-evaluation by your physician. Problem is new. Symptoms are unchanged. kdr
--- NOTE | 2019-03-23 21:23 | RAD REPORT ---
EXAM DESCRIPTION: RAD - Foot Left 3 View - 03/23/2019 8:30 pm CLINICAL HISTORY: Left Foot pain FINDINGS: No fracture or dislocation is seen. Prominent calcaneal spurs present posteriorly
== END 2019-03-23 21:05 | disposition home or self-care (01) ==
LOC: ER 19:26
DX: M79.672 Pain in left foot (principal)
CPT/HCPCS: 99284

== ENCOUNTER 2019-03-29 19:16 | Emergency (ER) | payer OTHER ==
--- OUTSIDE RECORDS SUMMARY | 2019-03-29 19:19 | XMS REPORT ---
:1970 [facility] Address [address] [place] [address] Dr. Nieto [address] [place] [address] Care Team Providers Name Role Phone Unavailable Unavailable Unavailable Problems This patient has no known problems. Allergies, Adverse Reactions, Alerts This patient has no known allergies or adverse reactions. Medications This patient has no known medications.
--- OUTSIDE RECORDS SUMMARY | 2019-03-29 19:19 | XMS REPORT | Summary of Care ---
:1970 Author Organization [facility] Address [address] [place] [address] Care Team Providers Name Role Phone Emilie Del Cid Primary Care Provider Reason for Visit Reason Comments Assessment Encounter Details Date Type Department Care Team Description 03/26/2019 Telephone [facility] Ear, Nose and YoungEric MD Assessment Throat-[address] [id number] [address] [place] [address] [place] [phone] Allergies No Known Allergiesdocumented as of this encounter (statuses as of 03/26/2019) Medications Medication Sig Dispensed Refills Start Date End Date Status cyclobenzaprine 5 mg Take 1 tablet 30 tablet 0 12/15/2017 Active tablet by mouth 3 (three) times daily. sod bjuki-ynrsru-xwwmep Use 1 Bottle in 1 Each 0 [...] days. Use after any saline nasal spray. ciprofloxacin-dexametha Place 4 Drops 7.5 mL 0 03/26/2019 Active sone 0.3-0.1 % otic in both ears 2 dropsIndications: Fluid (two) times level behind tympanic daily. membrane of both ears documented as of this encounter (statuses as of 03/26/2019) Active Problems No known active problemsdocumented as [...] Treatment Date Type Specialty Care Team Description 05/07/2019 Ancillary Visit Audiology 1, [facility] Audio Sound Suite 05/07/2019 Office Visit Otolaryngology Eric Dueñas MD [address] [facility] [id number] [place], [place] [address] Health Maintenance Due Date Last Done Comments DTaP,Tdap,and Td Vaccines (1 - 12/24/1990 Tdap) INFLUENZA VACCINE (#1) 2019 PNEUMOCOCCAL 0-64 YEARS COMBINED Aged Out No longer eligible based on SERIES patient's age to complete this topic documented as of this encounter Results Not on filedocumented in this encounter Insurance Payer Benefit Plan / Subscriber ID Effective Dates Phone Address Type Group [facility] xxxxxxxxx 2018-Present Medicaid COMM PLAN - MANAGED MEDICAID documented as of this encounter
--- OUTSIDE RECORDS SUMMARY | 2019-03-29 19:19 | XMS REPORT | Summary of Care ---
:1970 Author Organization [facility] Address [address] [place] [address] Care Team Providers Name Role Phone Emilie Del Cid Primary Care Provider Encounter Details Date Type Department Care Team Description 03/26/2019 Orders Only [facility] Doctor Unassigned, No 301 [facility] Name [place] [id number] [place] [address] Allergies No Known Allergiesdocumented as of this encounter (statuses as of 03/26/2019) Medications Medication Sig Dispensed Refills Start Date End Date Status cyclobenzaprine 5 mg Take 1 tablet 30 tablet 0 12/15/2017 Active tablet by mouth 3 (three) times daily. sod marps-yxmuqe-nqqmub Use 1 Bottle in 1 Each 0 [...] Care Team Description 05/07/2019 Ancillary Visit Audiology , [facility] Audio Sound Suite 05/07/2019 Office Visit Otolaryngology Eric Dueñas MD [address] [facility] [id number] [place] [address] [phone] Health Maintenance Due Date Last Done Comments DTaP,Tdap,and Td Vaccines ( - 12/24/1990 Tdap) INFLUENZA VACCINE (#1) 2019 PNEUMOCOCCAL 0-64 YEARS COMBINED Aged Out No longer eligible based on SERIES patient's age to complete this topic documented as of this encounter Procedures Procedure Name Priority Date/Time Associated Diagnosis Comments DISCLOSURE AND CONSENT, Routine 03/26/2019 12:01 AM MEDICAL AND SURGICAL CDT PROCEDURES documented in this encounter Results Not on filedocumented in this encounter Insurance Payer Benefit Plan / Subscriber ID Effective Dates Phone Address Type Group [facility] xxxxxxxxx 2018-Present Medicaid COMM PLAN - MANAGED MEDICAID documented as of this encounter
--- OUTSIDE RECORDS SUMMARY | 2019-03-29 19:19 | XMS REPORT | Summary of Care ---
:1970 Author Organization [facility] Address [address] [place] [address] Care Team Providers Name Role Phone Emilie Del Cid Primary Care Provider Reason for Referral (Routine) Status Reason Specialty Diagnoses / Referred By Referred To Procedures Contact Contact New Request Audiology Diagnoses Fluid level behind tympanic membrane of both ears Eric Dueñas MD Procedures CONSULT AUDIOLOGY [address] [facility] [id number] [place] [address] Reason for Visit Reason Comments Follow-up possible tube placement Encounter Details Date Type Department Care Team Description 03/26/2019 Office Visit [facility] Ear, Nose Eric Dueñas, Conductive hearing loss of left ear, unspecified hearing status on contralateral side ( Primary Dx); [facility]- Fluid level behind tympanic membrane of both ears; [address] LPRD (laryngopharyngeal reflux disease); [address] [place] [address]. [id number] Communication deficit; [place], [place] Globus sensation [phone] Allergies No Known Allergiesdocumented as of this encounter (statuses as of 03/27/2019) Medications Medication Sig Dispensed Refills Start Date End Date Status cyclobenzaprine 5 mg Take 1 tablet 30 tablet 0 12/15/2017 Active tablet by mouth 3 (three) times daily. sod xqnql-ugpasr-werspv Use 1 Bottle in 1 Each 0 [...] as of this encounter (statuses as of 03/27/2019) Active Problems No known active problemsdocumented as [...] Pressure - - Pulse - - Temperature 36.8 C (98.2 F) 03/26/2019 2:06 PM CDT Respiratory Rate - - Oxygen Saturation - - Inhaled Oxygen Concentration - - Weight 114.3 kg (251 lb 14.4 oz) 03/26/2019 2:06 PM CDT Height 180.3 cm (5' 11") 03/26/2019 2:06 PM CDT Body Mass Index 35.13 03/26/2019 2:06 PM CDT documented in this encounter Progress Notes Franklin Girard MD - 03/26/2019 2:00 PM CDT Name: Valentin Jordan MR No: [id number] Provider: Eric Dueñas M.D. Date: 03/26/2019 History: Chief Complaint: Follow-up (possible tube placement) [facility] History of Present Illness: Valentin Jordan is a 48 year old male presenting for follow up today for placement of MTs. Hewas last seen 02/26/19 at which time serous effusion was noted on left side. Continues to have ear fullness with non-pulsatile tinnitus and decreased hearing. Current everyday smoker. Hx of GERD andnasal congestion /seasonal allergies. Denies otorrhea, otalgia, vertigo, hx of prior ear surgery /trauma. Denies dyspnea, dysphagia, odynophagia, neck masses, weight loss. Past Medical Hx: History reviewed. No pertinent past medical history. Past Surgical Hx: History reviewed. No pertinent surgical history. Family History: History reviewed. No pertinent family history. Social History: Social History Occupational History Not on file Tobacco Use Smoking status: Not on file Substance and Sexual Activity Alcohol use: Not on file Drug use: Not on file Sexual activity: Not on file Medications: Current Outpatient Medications Medication Sig ciprofloxacin-dexamethasone 0.3-0.1 % otic drops Place 4 Drops in both ears 2 (two) times daily. fluticasone propionate 50 mcg/actuation nasal spray Use 2 Sprays in each nostril 2 (two) times daily for 90 days. Use after any saline nasal spray. ranitidine 300 mg tablet Take 1 tablet by mouth at bedtime for 90 days. loratadine 10 mg tablet Take 1 tablet by mouth daily. sod dmcen-clilwf-pxyafv bottle (NEILMED SINUS RINSE COMPLETE) pkdv Use 1 Bottle in each nostril 2 (two) times daily. Use in hot shower 1 hour before bedtime cyclobenzaprine 5 mg tablet Take 1 tablet by mouth 3 (three) times daily. Allergies to Meds: Patient has no known allergies. Review of systems: CONSTITUTIONAL: negative; EYES: negative; ENT: See HPI; CARDIOVASCULAR: negative; RESPIRATORY: negative; GASTROINTESTINAL: negative; GENITOURINARY: negative; MUSCULOSKELETAL: negative; SKIN: negative; NEUROLOGICAL: negative; PSYCHIATRIC: negative; ENDOCRINE: negative; HEMATOLOGIC/ LYMPHATIC: negative ; ALLERGIC/ IMMUNOLOGIC: negative. Physical Exam: CONSTITUTIONAL:No acute distress Vital Signs:Temp 36.8 C (98.2 F) (Tympanic) | Ht 5' 11" (1.803 m) | Wt 251 lb 14.4 oz (114.3 kg) | BMI 35.13 kg/m EYES:Normal gaze alignment EARS, NOSE, MOUTH, AND THROAT: Otoscopic Examination: Binocular Microscope: RIGHT EAR Ear Canal: Normal. Tympanic Membrane: PEDRO, collar button tube placed anterior inferior quadrant LEFT EAR Ear Canal: Normal. Tympanic Membrane: PEDRO, collar button tube placed anterior inferiorquadrant External Ears: Unremarkable. External Nose: unremarkable. Nasal Exam: unremarkable. Oral Exam: Unremarkable. Lips, Teeth, and Gums: unremarkable. Larynx: Normal Voice.CARDIOVASCULAR:Extremities were warm. RESPIRATORY:There was normal chest expansion. SKIN:Normal. NEUROLOGICAL:Cranial nerves II-XII intact. PSYCHIATRIC: Normal Affect. HEMATOLOGICAL/ LYMPHATIC:No cervical lymphadenopathy. Medical Decision Making: DATA: Data Reviewed: Medical: [facility] records Radiology: None Laboratory: None Tests and procedures ordered: Medical: Audiogram Radiology: None Laboratory: None DIAGNOSES: ICD-10-CM ICD-9-CM 1. Fluid level behind tympanic membrane of both ears H65.93 381.4 2. Conductive hearing loss of left ear, unspecified hearing status on contralateral side H90.12 389.05 3. LPRD (laryngopharyngeal reflux disease) K21.9 478.79 Risk: Moderate PROCEDURE: Binocular Microscopy used to place bilateral collar button tubes. Written consent obtained. Patient positioned appropriately. Phenol placed on tympanic membrane. Lidocaine injected in ear canal to prevent pain on tube placement secondary to anterior canal bulge preventing good visualization of anterior inferior quadrant for tube placement. Incision made in TM, collar button tube placed. Same procedure completed on opposite side. No complications and patient tolerated procedure well. FIBEROPTIC LARYNGOSCOPY Procedure performed to facilitate a clearer view of the glottic and supraglottic airway. After suitable acquisition of decongestion and topical anesthesia, the fiberoptic laryngoscope was inserted through the right nasal cavity. Findings include: - the visualized nasal passage(s) and nasopharynx were benign appearing with no lesions or drainage - mucosal erythema is present, particularly around the arytenoids and interarytenoid region - mucosal edema is present, particularly around the arytenoids and interarytenoid region - bilateral true vocal folds with grossly symmetrical movement - bilateral false vocal folds without obvious hyperfunctional movement - no grossly evident masses visualized in glottic, supraglottic, vallecular, or piriform sinus regions No complications. Assessment and Plan: Valentin Jordan is a 48 year old male presenting for follow up today for placement of MTs. Hewas last seen 02/26/19 at which time serous effusion was noted on left side. Continues to have ear fullness with non-pulsatile tinnitus and decreased hearing. Current everyday smoker. Scope exam with signs of irritation secondary to smoking and LPRD. Ear exam c/w BL PEDRO, collar button tubes placedtoday in clinic with no complications. I discussed at length the exam findings, diagnoses, and treatment options with the patient. Questions have been answered to satisfaction. Medications Given: (Patients allergies include: Patient has no known allergies.) Ciprodex drops Follow Up: RTC 4 weeks with Audiogram Franklin Girard MD Otolaryngology PGY 5 documented in this encounter Plan of Treatment Date Type Specialty Care Team Description 05/07/2019 Ancillary Visit Audiology , [facility] Audio Sound Suite 05/07/2019 Office Visit Otolaryngology Eric Dueñas MD [address] [id number] [place] [address] [phone] Health Maintenance Due Date Last Done Comments DTaP,Tdap,and Td Vaccines (1 - 12/24/1990 Tdap) INFLUENZA VACCINE (#1) 2019 PNEUMOCOCCAL 0-64 YEARS COMBINED Aged Out No longer eligible based on SERIES patient's age to complete this topic documented as of this encounter Results Not on filedocumented in this encounter Visit Diagnoses Diagnosis Conductive hearing loss of left ear, unspecified hearing status on contralateral side - Primary Fluid level behind tympanic membrane of both ears LPRD (laryngopharyngeal reflux disease) Other diseases of larynx Communication deficit Globus sensation Gastrointestinal malfunction arising from mental factors documented in this encounter Insurance Payer Benefit Plan / Subscriber ID Effective Dates Phone Address Type Group [facility] xxxxxxxxx 2018-Present Medicaid COMM PLAN - MANAGED MEDICAID documented as of this encounter
--- OUTSIDE RECORDS SUMMARY | 2019-03-29 19:19 | XMS REPORT | Summary of Care ---
:1970 Author Organization [facility] Address [address] [place] [address] Care Team Providers Name Role Phone Emilie Del Cid Primary Care Provider Reason for Visit Reason Comments Dizziness "like a tornado" Encounter Details Date Type Department Care Team Description 03/28/2019 Nurse Triage [facility] Francisca Mackey RN Dizziness ("like a [address] [place] [address] tornado" ) [place] [phone] Allergies No Known Allergiesdocumented as of this encounter (statuses as of 03/28/2019) Medications Medication Sig Dispensed Refills Start Date End Date Status cyclobenzaprine 5 mg Take 1 tablet 30 tablet 0 12/15/2017 Active tablet by mouth 3 (three) times daily. sod hbvgg-vdamfq-jntaoq Use 1 Bottle in 1 Each 0 [...] as of this encounter (statuses as of 03/28/2019) Active Problems No known active problemsdocumented as [...] Team Description 05/07/2019 Ancillary Visit Audiology 1, [facility] Audio Sound Suite 05/07/2019 Office Visit Otolaryngology Eric Dueñas MD [address] [facility] [id number] [place], [place] [address] Health Maintenance Due Date Last Done Comments DTaP,Tdap,and Td Vaccines (1 - 12/24/1990 Tdap) INFLUENZA VACCINE (#1) 2019 PNEUMOCOCCAL 0-64 YEARS COMBINED Aged Out No longer eligible based on SERIES patient's age to complete this topic documented as of this encounter Results Not on filedocumented in this encounter Insurance Payer Benefit Plan / Subscriber ID Effective Dates Phone Address Type Group [facility] xxxxxxxxx 2018-Present Medicaid COMM PLAN - MANAGED MEDICAID documented as of this encounter
--- NOTE | 2019-03-29 19:48 | ER ---
Nurse's Notes [facility] Name: Valentin Jordan Age: 48 yrs Sex: Male : 1970 Arrival Date: 03/29/2019 Time: 19:20 Bed 7 Private MD: Diagnosis: Pain in left foot Presentation: 03/29 19:22 Presenting complaint: "He has something wrong with his left foot, he has a knot on it, aj1 they did an X-Ray and it didn't show anything. And he had tubes put in his ears and now he's having a hard time hearing. We called this nurse and she said that was normal". Transition of care: patient was not received from another setting of care. Onset of symptoms was March 29, 2019. Risk Assessment: Do you want to hurt yourself or someone else? Patient reports no desire to harm self or others. Initial Sepsis Screen: Does the patient meet any 2 criteria? No. Patient's initial sepsis screen is negative. Does the patient have a suspected source of infection? No. Patient's initial sepsis screen is negative. Care prior to arrival: None. 19:22 Method Of Arrival: Wheelchair aj 19:22 Acuity: RAÚL 4 aj1 Triage Assessment: 19:23 General: Appears in no apparent distress. uncomfortable, Behavior is cooperative, aj1 agitated. Pain: Complains of pain in left foot. Neuro: Level of Consciousness is awake, alert, obeys commands. Cardiovascular: Patient's skin is warm and dry. Respiratory: Airway is patent Respiratory effort is even, unlabored, Respiratory pattern is regular, symmetrical. Historical: - Allergies: 19:23 No Known Allergies; aj1 - Home Meds: 19:23 pt does not know what medications he takes [Active]; aj1 - PMHx: 19:23 None; aj1 - Immunization history:: Adult Immunizations up to date. - Social history:: Smoking status: Patient uses tobacco products, smokes one pack cigarettes per day. - Ebola Screening: : Patient denies travel to an Ebola-affected area in the 21 days before illness onset. Screenin:40 Abuse screen: Denies threats or abuse. Denies injuries from another. Nutritional ak1 screening: No deficits noted. Tuberculosis screening: No symptoms or risk factors identified. Fall Risk None identified. Assessment: 19:38 General: Appears in no apparent distress. Behavior is calm, cooperative. Pain: ak1 Complains of pain in left foot. Neuro: Level of Consciousness is awake, alert, obeys commands, Oriented to person, place, time, Moves all extremities. Speech is normal. Cardiovascular: No deficits noted. Respiratory: No deficits noted. GI: No signs and/or symptoms were reported involving the gastrointestinal system. : No signs and/or symptoms were reported regarding the genitourinary system. EENT: Reports decrease in hearing s/p ear tubes placed. pt seen in January for tinnitus. . Derm: No signs and/or symptoms reported regarding the dermatologic system. Musculoskeletal: Reports pain in left foot pt seen 03/23/19 for same s/s with xray preformed. Vital Signs: 19:23 BP 136 / 79; Pulse 105; Resp 20; Temp 97.0; Pulse Ox 96% on R/A; Weight 113.4 kg (R); aj1 Height 5 ft. 11 in. (180.34 cm) (R); Pain 8/10; 19:23 Body Mass Index 34.87 (113.40 kg, 180.34 cm) aj ED Course: 19:20 Patient arrived in ED. mr 19:23 Triage completed. aj1 19:23 Arm band placed on Patient placed in an exam room. aj1 19:26 Trudy Cheatham, CHUCK is Primary Nurse. ak1 19:26 Robyn Brandt FNP is PHCP. ok 19:26 Meet Bass MD is Attending Physician. ok 19:40 Patient has correct armband on for positive identification. Bed in low position. Call ak1 light in reach. Side rails up X 1. Adult w/ patient. Pulse ox on. NIBP on. 19:54 No provider procedures requiring assistance completed. Patient did not have IV access tl1 during this emergency room visit. Administered Medications: No medications were administered Outcome: 19:47 Discharge ordered by . ok 19:53 Medical screen evaluation completed per provider. Patient declined treatment. tl1 19:53 Condition: good 19:53 Discharge instructions given to patient, Instructed on follow up and referral plans. 19:54 Patient left the ED. tl1 Signatures: Traci Ren RN RN aj Robyn Brandt FNP [employer] ok LoyaDea, Pamela, RN RN tl1 Linden, Trduy, RN RN ak1
--- NOTE | 2019-03-29 19:49 | EDPHYS ---
Physician Documentation [facility] Name: Valentin Jordan Age: 48 yrs Sex: Male : 1970 Arrival Date: 03/29/2019 Time: 19:20 Bed 7 Private MD: ED Physician Meet Bass HPI: 03/29 19:43 This 48 yrs old Male presents to ER via Wheelchair with complaints of nh Dizziness, Foot Pain. 19:44 The patient presents with pain, that is chronic. The complaints affect the left foot. nh Onset: The symptoms/episode began/occurred 3 week(s) ago. Modifying factors: The symptoms are alleviated by nothing, the symptoms are aggravated by nothing. Associated signs and symptoms: The patient has no apparent associated signs or symptoms. Severity of symptoms: At their worst the symptoms were moderate, just prior to arrival, in the emergency department the symptoms are unchanged. The patient has experienced similar episodes in the past. The patient has been recently seen by a physician: the patient's primary care provider, with similar presenting complaints, lab tests were done, X-rays were performed, and was referred to a specialist. Patient also c/o hearing loss. Had tubes placed last week. Historical: - Allergies: 19:23 No Known Allergies; aj1 - Home Meds: 19:23 pt does not know what medications he takes [Active]; aj1 - PMHx: 19:23 None; aj1 - Immunization history:: Adult Immunizations up to date. - Social history:: Smoking status: Patient uses tobacco products, smokes one pack cigarettes per day. - Ebola Screening: : Patient denies travel to an Ebola-affected area in the 21 days before illness onset. ROS: 19:44 Constitutional: Negative for fever, chills, and weight loss, Eyes: Negative for injury, nh pain, redness, and discharge, ENT: Negative for injury, pain, and discharge, Neck: Negative for injury, pain, and swelling, Cardiovascular: Negative for chest pain, palpitations, and edema, Respiratory: Negative for shortness of breath, cough, wheezing, and pleuritic chest pain, Abdomen/GI: Negative for abdominal pain, nausea, vomiting, diarrhea, and constipation, Back: Negative for injury and pain, : Negative for injury, bleeding, discharge, and swelling, Skin: Negative for injury, rash, and discoloration, Neuro: Negative for headache, weakness, numbness, tingling, and seizure, Psych: Negative for depression, anxiety, suicide ideation, homicidal ideation, and hallucinations, Allergy/Immunology: Negative for hives, rash, and allergies. 19:44 MS/extremity: Positive for pain. Exam: 19:44 Constitutional: This is a well developed, well nourished patient who is awake, alert, nh and in no acute distress. Head/Face: Normocephalic, atraumatic. Eyes: Pupils equal round and reactive to light, extra-ocular motions intact. Lids and lashes normal. Conjunctiva and sclera are non-icteric and not injected. Cornea within normal limits. Periorbital areas with no swelling, redness, or edema. ENT: Nares patent. No nasal discharge, no septal abnormalities noted. Tympanic membranes are normal and external auditory canals are clear. Oropharynx with no redness, swelling, or masses, exudates, or evidence of obstruction, uvula midline. Mucous membranes moist. Neck: Trachea midline, no thyromegaly or masses palpated, and no cervical lymphadenopathy. Supple, full range of motion without nuchal rigidity, or vertebral point tenderness. No Meningismus. Chest/axilla: Normal chest wall appearance and motion. Nontender with no deformity. No lesions are appreciated. Cardiovascular: Regular rate and rhythm with a normal S1 and S2. No gallops, murmurs, or rubs. Normal PMI, no JVD. No pulse deficits. Respiratory: Lungs have equal breath sounds bilaterally, clear to auscultation and percussion. No rales, rhonchi or wheezes noted. No increased work of breathing, no retractions or nasal flaring. Abdomen/GI: Soft, non-tender, with normal bowel sounds. No distension or tympany. No guarding or rebound. No evidence of tenderness throughout. Back: No spinal tenderness. No costovertebral tenderness. Full range of motion. Skin: Warm, dry with normal turgor. Normal color with no rashes, no lesions, and no evidence of cellulitis. MS/ Extremity: Pulses equal, no cyanosis. Neurovascular intact. Full, normal range of motion. Vital Signs: 19:23 BP 136 / 79; Pulse 105; Resp 20; Temp 97.0; Pulse Ox 96% on R/A; Weight 113.4 kg (R); aj1 Height 5 ft. 11 in. (180.34 cm) (R); Pain 8/10; 19:23 Body Mass Index 34.87 (113.40 kg, 180.34 cm) aj1 MDM: 19:26 Patient medically screened. ne 19:44 Data reviewed: vital signs, nurses notes, old medical records, I have discussed the ne patient's presentation/case with the attending Emergency Department Physician; and as a result, I will discharge patient. Counseling: I had a detailed discussion with the patient and/or guardian regarding: the historical points, exam findings, and any diagnostic results supporting the discharge/admit diagnosis, the need for outpatient follow up, to return to the emergency department if symptoms worsen or persist or if there are any questions or concerns that arise at home. Administered Medications: No medications were administered Disposition: 03/29/19 19:47 Discharged to Home as Medical Screen. Impression: Pain in left foot. - Condition is Stable. - Discharge Instructions: Musculoskeletal Pain. - Medication Reconciliation Form, Thank You Letter, Antibiotic Education, Prescription Opioid Use, Work release form form. - Follow up: Private Physician; When: 5 - 6 days; Reason: Recheck today's complaints. - Problem is new. - Symptoms are unchanged. Signatures: Traci Ren RN RN aj1 Robyn Brandt FNP TOPOGRAPHIC COMPUTATOR ne Pamela Bliss RN RN tl1 Corrections: (The following items were deleted from the chart) 19:48 19:47 03/29/2019 19:47 Discharged to Home. Impression: Pain in left foot. Condition is ne Stable. Forms are Medication Reconciliation Form, Thank You Letter, Antibiotic Education, Prescription Opioid Use. Follow up: Private Physician; When: 5 - 6 days; Reason: Recheck today's complaints. Problem is new. Symptoms are unchanged. ne 19:54 19:48 03/29/2019 19:47 Discharged to Home as Medical Screen. Impression: Pain in left tl1 foot. Condition is Stable. Discharge Instructions: Musculoskeletal Pain. Forms are Medication Reconciliation Form, Thank You Letter, Antibiotic Education, Prescription Opioid Use. Follow up: Private Physician; When: 5 - 6 days; Reason: Recheck today's complaints. Problem is new. Symptoms are unchanged. ne
[2019-03-30 01:18] VITALS: BP 136/79; TEMP 97; O2SAT 96
== END 2019-03-29 19:54 | disposition home or self-care (01) ==
LOC: ER 19:16
DX: M79.672 Pain in left foot (principal); F17.210 Nicotine dependence, cigarettes, uncomplicated
CPT/HCPCS: 99283